=== PATIENT | male | born 1935 | race Caucasian/White ===

== ENCOUNTER → 2019-11-04 09:46 | Outpatient (BNVA) | payer MEDICARE, OTHER, SELFPAY | PROVIDERS: Family Provider Nurse Practitioner Family; PCP Nurse Practitioner Family; Visit Provider Registered Nurse | DX: E78.5 Hyperlipidemia, unspecified (principal); I10 Essential (primary) hypertension | CPT/HCPCS: 80053; 80061; 85025 ==

== ENCOUNTER 2020-01-14 10:24 | Inpatient (IN) | payer MEDICARE, OTHER, SELFPAY ==
[2020-01-14] VITALS (9 sets, daily range): BP systolic 116–173; BP diastolic 55–118; PULSE 63–84; RESP 14–19; TEMP 25.5–36.7; O2SAT 93–98; BMI 27.8
--- NOTE | 2020-01-14 11:15 | ECG_ITS ---
[facility] Test Date: 2020-01-14 Pat Name: Olivier Townsend Department: Room: Gender: Male Respiratory Manager: : 1935 Requested By: Sean Alarcon Order Number: [id number] Bro MD: Anil Brewer M.D. Measurements Intervals [place] Rate: 73 P: 51 MA: 182 QRS: -30 QRSD: 85 T: 49 QT: 354 QTc: 393 Interpretive Statements SINUS RHYTHM BORDERLINE LEFT AXIS DEVIATION [QRS AXIS < -20] NONSPECIFIC ST & T-WAVE ABNORMALITY Compared to ECG 05/10/2015 06:08:05 No significant changes Electronically Signed On 01-15-2020 18:35:01 CDT by Anil Brewer M.D. [email or web address]/store/NU/[id number] f
--- NOTE | 2020-01-14 11:15 | XRR_ITS ---
PROCEDURE INFORMATION: Exam: XR Chest, 1 View Exam date and time: 01/14/2020 11:16 AM Age: 84 years old Clinical indication: Other: Palpitation; Patient HX: SOB on exertion TECHNIQUE: Imaging protocol: XR of the chest Views: 1 view. COMPARISON: CR Chest 2 views* [id number] 04/20/2017 11:29 AM FINDINGS: Lungs: Calcified granuloma right lower lobe and left upper lobe. Lungs are well aerated without a focal area of consolidation. Pleural space: Unremarkable. No pleural effusion. No pneumothorax. Heart/Mediastinum: Unremarkable. No cardiomegaly. Bones/joints: Unremarkable. XR/XR chest 1V portable [id number] IMPRESSION: Lungs are well aerated without a focal area of consolidation.
[2020-01-14 11:24] LABS: Basophils % 0.5 %; Eosinophils # 0.2 10^3/uL (0.0-0.8); Eosinophils % 2.9 %; Hematocrit 52.8 % (42.0-52.0); Hemoglobin 17.3 g/dL (11.7-16.6); Lymphocytes # 1.9 10^3/uL (0.8-4.8); Lymphocytes % 29.6 %; Mean Corpuscular HGB Conc 32.8 g/dL (30.0-36.0); Mean Corpuscular Hemoglobin 30.1 pg (28.0-34.0); Mean Corpuscular Volume 91.8 fL (80-94); Mean Platelet Volume 9.2 fL (7.4-10.4); Monocytes # 0.5 10^3/uL (0.2-0.9); Monocytes % 7.2 %; Neutrophils # 3.87 10^3/uL (1.8-7.7); Neutrophils % 59.5 %; Nucleated Red Blood Cells % 0 %; Platelet Count 207 10^3/cmm (130-400); Red Blood Count 5.75 10^6/uL (4.1-5.3); Red Cell Distribution Width 13.5 % (12.1-15.1); White Blood Count 6.5 10^3/uL (4.0-10.0)
--- NOTE | 2020-01-14 11:25 | CT_ITS ---
WS: [id number] CT CHEST ANGIOGRAPHY WITH REFORMATS HISTORY: cp TECHNIQUE: Contiguous axial images are obtained through the chest during arterial injection of intrav enous contrast. Images are reconstructed to evaluate the pulmonary arteries. MIP imaging also reviewe d. All CT scans at [facility] use at least one of these dose optimization techniques: aut omated exposure control; mA and/or kV adjustment per patient size (includes targeted exams where dose is matched to clinical indication); or iterative reconstruction. CONTRAST: Omnipaque 300; 95 mL IV. DLP: 551.29 mGy.cm COMPARISON: 05/10/2015 Very good opacification of the pulmonary arteries. There is significant embolic burden bilaterally wi thin the pulmonary arteries. Near complete occlusion beginning in the distal RIGHT main pulmonary art colette with emboli branching into the upper, middle and lower lobes. Occlusive emboli begins in the subs egmental branches of the LEFT lower lobe. Chronic emphysema. No pneumonia. No wedge-shaped infarcts. Mild dependent changes at the lung bases b ilaterally. Mild enlargement of the RIGHT heart chambers with mild RIGHT heart strain. No pericardial or pleural effusion. 10 mm RIGHT hilar lymph node. Small hiatal hernia. Mild hepatic steatosis. Prior cholecystectomy. No osteoblastic or osteolytic bone disease. CT/CT angio chest PE protcl [id number] IMPRESSION: 1. Significant bilateral pulmonary embolic burden. 2. No pneumonia. 3. Chronic emphysema. Notified Sean Alarcon MD at 01/14/2020 1:21 PM.
--- NOTE | 2020-01-14 11:28 | ED_ITS ---
HPI - Arrhythmia/Palpitations General: Chief Complaint: Arrhythmia/Palpitations Stated Complaint: RAPID HEART BEAT Time Seen by Provider: 01/14/20 11:14 Source: patient Mode of arrival: ambulatory Limitations: no limitations History of Present Illness: HPI narrative: 84-year-old male with history of pulmonary embolism roughly 5 to 6 years ago. Patient states that he was digging earlier today roughly at 8-8 30 and started to have palpitations along with chest pain. He states this lasted roughly 10 minutes and is since resolved. He states he still having some exertional shortness of breath but has no longer had any chest pain. Denies any fever or cough. Denies any weakness. Denies any vomiting or diarrhea. Associated symptoms: Deny nausea or vomiting Review of Systems Const: Denies: fever(s), chills, body aches or change in appetite Eyes: Denies: blurry vision or eye discomfort ENMT: Denies: throat pain or dental pain Card: Reports: chest pain, palpitations and dyspnea on exertion Resp: Denies: dyspnea GI: Denies: abdominal pain, nausea, vomiting or diarrhea : Denies: dysuria Musc: Denies: neck pain or back pain Skin/Breast: Denies: rash Neuro: Denies: headache(s) Psych: Denies: depression Eitan/Lymph: Denies: easy bruising All/Imm: Denies: urticaria PFSH ED PFSH: Medical History Essential hypertension Family History Other Cancer Social History Smoking and tobacco status: never smoked Physical Exam Const: COMMON NORMALS: no acute distress, patient oriented x3 and healthy appearing HENMT: COMMON NORMALS: normocephalic and atraumatic HEAD & SCALP: normocephalic and atraumatic Eye: COMMON NORMALS: Equal, round and reactive pupils present and EOMs intact bilaterally PUPIL: Yes Equal, round and reactive pupils present Neck/C-Spine: COMMON NORMALS: full ROM and supple Chest: COMMONS NORMALS: normal inspection of the chest and normal palpation of entire chest wall Resp: COMMON NORMALS: normal respiratory effort, No retractions, No use of accessory muscles and clear to auscultation bilaterally AUSCULTATION: clear to auscultation bilaterally Cardio: COMMON NORMALS: regular rate, regular rhythm and No murmurs present (Cardio) RATE: regular rate RHYTHM: regular rhythm GI: COMMON NORMALS: Normal to inspection, nondistended, normoactive bowel sounds present, Soft to palpation, non-tender and no masses PALPATION: Yes Soft to palpation Extremity: COMMON NORMALS: normal to inspection and full ROM Neuro: COMMON NORMALS: patient oriented x3, moves all extremities and no focal motor deficits Psych: COMMON NORMALS: mental status grossly normal, Normal thought process present and cooperative THOUGHT PROCESS: Normal thought process present Skin: COMMON NORMALS: no rashes or lesions noted and no wounds GENERAL SKIN EXAM: no rashes or lesions noted Course Vital Signs: Vital signs: Vital Signs Temperature 97.9 F 01/14/20 10:34 Pulse Rate 76 01/14/20 10:45 Respiratory Rate 16 01/14/20 10:45 Blood Pressure 173/118 01/14/20 10:34 Pulse Oximetry 97 01/14/20 10:45 MDM - Arrhythmia/Palpitations MDM Narrative: Medical decision making narrative: Patient presents here with chest pain along with dyspnea on exertion is found to have a pulmonary embolism. Patient here is been well-appearing with normal blood pressure. Patient started on Lovenox. I spoke to hospitalist and will admit at this time. Patient has been pain-free here. Lab Data: Labs: Lab Results 01/14/20 01/14/20 01/14/20 Range/Units 11:20 11:20 11:20 WBC 6.5 (4.0-10.0) 10^3/ uL RBC 5.75 H (4.1-5.3) 10^6/u L Hgb 17.3 H (11.7-16.6) g/dL Hct 52.8 H (42.0-52.0) % MCV 91.8 (80-94) fL MCH 30.1 (28.0-34.0) pg MCHC 32.8 (30.0-36.0) g/dL RDW 13.5 (12.1-15.1) % Plt Count 207 (130-400) 10^3/c mm MPV 9.2 (7.4-10.4) fL Neut % (Auto) 59.5 % Lymph % (Auto) 29.6 % [place] % (Auto) 7.2 % Eos % (Auto) 2.9 % Baso % (Auto) 0.5 % Neut # (Auto) 3.87 (1.8-7.7) 10^3/u L Lymph # (Auto) 1.9 (0.8-4.8) 10^3/u L [place] # (Auto) 0.5 (0.2-0.9) 10^3/u L Eos # (Auto) 0.2 (0.0-0.8) 10^3/u L Baso # (Auto) 0.0 (0.0-0.1) 10^3/u L Nucleated RBC % (a uto) 0 % Nucleated RBCs # 0.0 /100WBC PT 11.80 L (12.1-14.9) SECO NDS INR 0.84 (0.8-1.2) Sodium 140 (136-145) mmol/L Potassium 4.5 (3.5-5.1) mmol/L Chloride 103 (98-107) mmol/L Carbon Dioxide 25 (22-29) mmol/L Anion Gap 16.5 (5-19) BUN 19 (8-23) mg/dL Creatinine 1.1 (0.7-1.2) mg/dL GFR Calculation Not Reportable Glucose 101 (65-115) mg/dL Calculated Osmolal ity 292 (285-295) mOsm/k g Calcium 9.8 (8.5-10.5) mg/dL Total Bilirubin 1.0 (0.15-1.2) mg/dL AST 22 (0-40) U/L ALT 16 (0-41) U/L Alkaline Phosphata se 58 (40-130) IU/L Troponin T Baselin e (0-15) ng/L Troponin T 120 Min kimberly (0-15) ng/L Delta Troponin T (0-10) ABS# Total Protein 7.3 (6.6-8.7) g/dL Albumin 4.5 (3.5-5.2) g/dL Globulin 2.8 (1.3-4.6) g/dL 01/14/20 01/14/20 Range/Units 11:20 13:13 WBC (4.0-10.0) 10^3/ uL RBC (4.1-5.3) 10^6/u L Hgb (11.7-16.6) g/dL Hct (42.0-52.0) % MCV (80-94) fL MCH (28.0-34.0) pg MCHC (30.0-36.0) g/dL RDW (12.1-15.1) % Plt Count (130-400) 10^3/c mm MPV (7.4-10.4) fL Neut % (Auto) % Lymph % (Auto) % [place] % (Auto) % Eos % (Auto) % Baso % (Auto) % Neut # (Auto) (1.8-7.7) 10^3/u L Lymph # (Auto) (0.8-4.8) 10^3/u L [place] # (Auto) (0.2-0.9) 10^3/u L Eos # (Auto) (0.0-0.8) 10^3/u L Baso # (Auto) (0.0-0.1) 10^3/u L Nucleated RBC % (a uto) % Nucleated RBCs # /100WBC PT (12.1-14.9) SECO NDS INR (0.8-1.2) Sodium (136-145) mmol/L Potassium (3.5-5.1) mmol/L Chloride (98-107) mmol/L Carbon Dioxide (22-29) mmol/L Anion Gap (5-19) BUN (8-23) mg/dL Creatinine (0.7-1.2) mg/dL GFR Calculation Glucose (65-115) mg/dL Calculated Osmolal ity (285-295) mOsm/k g Calcium (8.5-10.5) mg/dL Total Bilirubin (0.15-1.2) mg/dL AST (0-40) U/L ALT (0-41) U/L Alkaline Phosphata se (40-130) IU/L Troponin T Baselin e 57 H (0-15) ng/L Troponin T 120 Min kimberly 76.89 H (0-15) ng/L Delta Troponin T 19.89 H* (0-10) ABS# Total Protein (6.6-8.7) g/dL Albumin (3.5-5.2) g/dL Globulin (1.3-4.6) g/dL Imaging Data^: CT Chest: Attestation: I personally reviewed and interpreted this imaging study as follows: Radiologist's impression: [address] [place] [address] CT Scan Report Signed Patient: Olivier Townsend Unit #: [id number] : 1935 Age/Sex: 84 / M ADM Date: 01/14/20 Loc: ER Room/Bed: Attending Dr: Ordering Provider/Ordering MD: Sean Alarcon MD Date of Service: 01/14/20 Procedure(s): CT angio chest PE protcl [id number] Accession Number(s): [id number] Report Number: [id number] WS: [id number] CT CHEST ANGIOGRAPHY WITH REFORMATS HISTORY: cp TECHNIQUE: Contiguous axial images are obtained through the chest during arterial injection of intravenous contrast. Images are reconstructed to evaluate the pulmonary arteries. MIP imaging also reviewed. All CT scans at [facility] use at least one of these dose optimization techniques: automated exposure control; mA and/or kV adjustment per patient size (includes targeted exams where dose is matched to clinical indication); or iterative reconstruction. CONTRAST: Omnipaque 300; 95 mL IV. DLP: 551.29 mGy.cm COMPARISON: 05/10/2015 Very good opacification of the pulmonary arteries. There is significant embolic burden bilaterally within the pulmonary arteries. Near complete occlusion beginning in the distal RIGHT main pulmonary artery with emboli branching into the upper, middle and lower lobes. Occlusive emboli begins in the subsegmental branches of the LEFT lower lobe. Chronic emphysema. No pneumonia. No wedge-shaped infarcts. Mild dependent changes at the lung bases bilaterally. Mild enlargement of the RIGHT heart chambers with mild RIGHT heart strain. No pericardial or pleural effusion. 10 mm RIGHT hilar lymph node. Small hiatal hernia. Mild hepatic steatosis. Prior cholecystectomy. No osteoblastic or osteolytic bone disease. CT/CT angio chest PE protcl [id number] IMPRESSION: 1. Significant bilateral pulmonary embolic burden. 2. No pneumonia. 3. Chronic emphysema. EKG Data^: EKG 1: Attestation: I personally reviewed and interpreted this EKG as follows: EKG interpretation date: 01/14/20 EKG interpretation time: 10:31 Interpretation: nsr hr [address] or t wave abnormalities qrs 85 qtc 381 Other EKG comments: Chest X-Ray 01/14/20 11:15 IMPRESSION: Lungs are well aerated without a focal area of consolidation. Chest CTA 01/14/20 11:25 IMPRESSION: 1. Significant bilateral pulmonary embolic burden. 2. No pneumonia. 3. Chronic emphysema. Notified Sean Alarcon MD at 01/14/2020 1:21 PM. Discharge Plan Discharge Patient Disposition: Admitted As Inpatient Clinical Impression: Pulmonary embolism Qualifiers: Pulmonary embolism type: unspecified Chronicity: acute Acute cor pulmonale presence: unspecified Qualified Code(s): I26.99 - Other pulmonary embolism without acute cor pulmonale Condition: Stable Referrals: Dann Prado FNP [Primary Care Provider] - Mark Sprague FNP [Family Provider] - Coding Level of Care Code ED Real Estate Account Executive for Chg Fwd Exam Comprehensive
[2020-01-14 11:42] LABS: INR 0.84 (0.8-1.2)
[2020-01-14 11:43] LABS: Alanine Aminotransferase 16 U/L (0-41); Albumin Level 4.5 g/dL (3.5-5.2); Alkaline Phosphatase 58 IU/L (40-130); Anion Gap 16.5 (5-19); Aspartate Amino Transferase 22 U/L (0-40); Blood Urea Nitrogen 19 mg/dL (8-23); Calcium 9.8 mg/dL (8.5-10.5); Carbon Dioxide 25 mmol/L (22-29); Chloride 103 mmol/L (98-107); Creatinine Clr Calc Pharmacy 61.3353; Globulin 2.8 g/dL (1.3-4.6); Glucose 101 mg/dL (65-115); Osmolality Calculated 292 mOsm/kg (285-295); Potassium 4.5 mmol/L (3.5-5.1); Sodium 140 mmol/L (136-145); Total Protein 7.3 g/dL (6.6-8.7); Troponin(5th) Baseline 57 ng/L (0-15)
[2020-01-14] MEDS: iohexol 350 mg/mL 100 mL Btl IV (12:50)
--- NOTE | 2020-01-14 13:15 | ECG_ITS ---
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 Measurements Intervals [place] Rate: 61 P: 48 TN: 210 QRS: 64 QRSD: 92 T: -7 QT: 407 QTc: 412 Interpretive Statements SINUS RHYTHM WITH FIRST DEGREE AV BLOCK INDETERMINATE AXIS INCOMPLETE RIGHT BUNDLE BRANCH BLOCK [90+ ms QRS DURATION, TERMINAL R IN V1/V2, 40+ ms S IN I/aVL/V4/V5/V6] NONSPECIFIC T-WAVE ABNORMALITY Compared to ECG 01/14/2020 10:31:33 First degree AV block now present Indeterminate axis now present Incomplete right bundle-branch block now present T-wave abnormality still present Electronically Signed On 01-15-2020 18:36:49 CDT by Anil Brewer M.D. [email or web address]/store/ov/[id number]
[2020-01-14 13:37] LABS: Troponin 5 2HR 76.89 ng/L (0-15)
[2020-01-14] MEDS: enoxaparin 100 mg/mL Syringe 90 MG SUBCUT (13:40)
[2020-01-14 13:44] LABS: Troponin 5 2HR Delta 19.89 ABS# (0-10)
--- NOTE | 2020-01-14 15:45 | PM.HP ---
Providers/Chief Complaint Admitting Physician: Cally Duke MD Primary Care Provider: WILLARD Salamanca Chief Complaint: RAPID HEART BEAT History of Present Illness Olivier Townsend is a 84 year old male with a past medical history of hypertension, unprovoked PE approximately 5 years ago for which he was on po anticoagulation for approximately a year and then discontinued when patient started to feel well. He was in his usual state of health until 8 AM this morning when he was outside his house and suddenly started experiencing palpitations. Denies any chest pain at that time. Lorado subjectively short of breath and presented to the ER. Upon presentation here he underwent a CT of the chest which shows a bilateral PE. Per radiology read there is significant embolic burden bilaterally within the pulmonary arteries with near complete occlusion of the distal right main pulmonary artery with emboli present in the upper middle and lower lobes. Occlusive emboli and thickening in the subsegmental branches of the left lower lobe. Labs are notable for hemoglobin of 17.3, elevated baseline troponin of 57, with a 2-hour delta of 19. Patient denies current symptoms at this time. He is saturating 97% on room air. Denies any dyspnea or chest pain. No known covert exposures. No complaints of fever. Review of Systems General: Reports: 10 or more systems reviewed and unremarkable except in HPI and below Const: Denies: fever(s), chills or body aches Eyes: Denies: change in vision, blurry vision or photophobia ENMT: Reports: hoarseness; Denies: throat pain, enlarged tonsils, odynophagia or nasal congestion Card: Denies: chest pain, palpitations, irregular heart rhythm, edema, swelling of feet/ankles, lightheadedness, pre-syncope, dyspnea on exertion or orthopnea Resp: Denies: dyspnea, productive cough, non-productive cough, wheezing, stridor, pain on inspiration, change in phlegm color, hemoptysis or chest congestion GI: Denies: abdominal pain, nausea, vomiting, hematemesis, coffee ground emesis, dysphagia, heartburn, diarrhea, constipation, GI cramping, change in stool character, hematochezia or melena : Denies: flank pain, dysuria, urinary frequency, urinary urgency, urinary hesitancy or hematuria Musc: Denies: neck pain, back pain, extremity pain, joint swelling, joint warmth or deformity Neuro: Denies: headache(s), numbness in extremities, weakness in extremities, sensory changes, difficulty walking, frequent falls, dizziness, vertigo, behavioral changes, Slurred speech present or seizure-like activity Psych: Denies: anxiety, depression, suicidal ideation or homicidal ideation Endo: Denies: polyuria, polydipsia, tired all the time, cold intolerance or hot flashes Eitan/Lymph: Denies: easy bruising or easy bleeding Medications/Allergies Home Medications Medication Instructions Recorded Confirmed Last Taken Type carvedilol 3.125 mg tablet 3.125 mg PO BID 90 Days #180 tab 11/04/19 01/14/20 01/14/20 Rx cetirizine 10 mg capsule 10 mg PO DAILY 90 Days #90 cap 11/04/19 01/14/20 01/14/20 Rx Vitamin D3 1 tab PO DAILY 01/14/20 01/14/20 01/14/20 History aspirin 81 mg PO DAILY 01/14/20 01/14/20 01/14/20 History Allergies Allergy/AdvReac Type Severity Reaction Status Date / Time No Known Allergies Allergy Verified 01/14/20 12:17 PFSH Acute PFSH: Medical History Essential hypertension Family History Other Cancer Social History Smoking and tobacco status: never smoked Vitals/I&O/Wt Last Vital Signs Temp 78 F L 01/14/20 12:24 Pulse 71 01/14/20 14:59 Resp 18 01/14/20 14:59 BP 147/88 01/14/20 14:59 Pulse Ox 96 01/14/20 14:59 Weight last 48 hrs Weight 92.986 kg Physical Exam Const: COMMON NORMALS: no acute distress, average body habitus, patient oriented x3, no limitations, healthy appearing, alert and well nourished HENMT: COMMON NORMALS: normocephalic and atraumatic HEAD & SCALP: normocephalic and atraumatic Eye: COMMON NORMALS: Equal, round and reactive pupils present, EOMs intact bilaterally, conjunctivae normal and no scleral icterus CONJUNCTIVA: Yes conjunctivae normal PUPIL: Yes Equal, round and reactive pupils present Neck/C-Spine: COMMON NORMALS: no JVD Resp: COMMON NORMALS: normal respiratory effort, No retractions, No use of accessory muscles, clear to auscultation bilaterally and percussion normal AUSCULTATION: clear to auscultation bilaterally PERCUSSION: percussion normal Cardio: COMMON NORMALS: no JVD, regular rate, regular rhythm, S1 normal heart sound present, S2 normal heart sound present, No gallops present (Cardio), No clicks present (Cardio), No murmurs present (Cardio), No rub (Cardio) and Peripheral pulses 2+ throughout RATE: regular rate RHYTHM: regular rhythm HEART SOUNDS: S1 normal heart sound present and S2 normal heart sound present PERIPHERAL PULSES: Peripheral pulses 2+ throughout GI: COMMON NORMALS: Normal to inspection, nondistended, normoactive bowel sounds present, Soft to palpation, non-tender, No hepatosplenomegaly present, no masses and no bruits PALPATION: Yes Soft to palpation and Yes No hepatosplenomegaly present Extremity: COMMON NORMALS: normal to inspection, full ROM, capillary refill normal, no joint enlargement, no clubbing, cyanosis or edema, no calf tenderness and no pedal edema Neuro: COMMON NORMALS: patient oriented x3, CN's II-XII intact bilaterally, moves all extremities, no focal motor deficits, no sensory deficits noted, deep tendon reflexes 2+ bilaterally and gait normal SENSORIUM/ORIENTATION: Yes alert Psych: COMMON NORMALS: mental status grossly normal, Normal thought process present, cooperative, normal affect, speech normal, activity/motor behavior normal, denies hallucinations, denies homicidal ideation and denies suicidal ideation SPEECH: Yes normal speech THOUGHT PROCESS: Normal thought process present Skin: COMMON NORMALS: no rashes or lesions noted, no wounds, turgor normal, no jaundice, no petechiae and no mottling GENERAL SKIN EXAM: no rashes or lesions noted and turgor normal Data : 01/14/20 11:20 01/14/20 11:20 A&P Assessment and plan (1) Pulmonary embolism: Status: Acute Qualifiers: Acute cor pulmonale presence: unspecified Chronicity: acute Pulmonary embolism type: unspecified Qualified Code(s): I26.99 - Other pulmonary embolism without acute cor pulmonale (2) Essential hypertension: Status: Acute Additional A&P Information Admit to CSU in view of PE and elevated troponins #Bilateral pulmonary embolism as noted above in HPI. Fortunately patient is currently hemodynamically stable, saturating greater than has been more dyspnea. Start him on heparin drip today. Would prefer this over Lovenox given that patient has massive PE we need to monitor him closely and in case of any decomp may need vascular intervention If remains stable over the next 24 to 48 hours, will plan to transition him to NOACs. Elevated troponin likely 2/2 right heart strain, check 2 D echocardiogram , monitor for arrhythmias Continue to check serial troponins. Continuous pulse oximetery to keep sat >92% Continue home dose of ASA and carvedilol Check LE duplex 2nd episode of PE in 5 years , no known h/o malignancy Full code Attestations Medical Necessity Statement*: Anticipate greater than 2 midnight admission for management of massive pulmonary embolism along with right heart strain. Coding Level of Care Code Acute Inspection And Testing Supervisor for [place] Rachel Diagnoses Pulmonary embolism I26.99 Acute cor pulmonale presence: unspecified Chronicity: acute Pulmonary embolism type: unspecified Essential hypertension I10
[2020-01-14] MEDS: heparin 5,000 unit/mL INJ 1 mL IV (16:38)
[2020-01-14] MEDS: heparin drip 25,000 UNIT/500 ML PREMIX 26 UNIT IV (16:39)
--- NOTE | 2020-01-14 17:15 | ECG_ITS ---
[facility] Test Date: 2020-01-14 Pat Name: Olivier Townsend Department: Room: 106 Gender: Male Manager Of Medical: : 1935 Requested By: Sean Alarcon Order Number: [id number] Bro MD: Anil Brewer M.D. Measurements Intervals [place] Rate: 69 P: 38 NV: 199 QRS: 17 QRSD: 95 T: 30 QT: 390 QTc: 419 Interpretive Statements SINUS RHYTHM Compared to ECG 01/14/2020 13:47:14 First degree AV block no longer present Indeterminate axis no longer present Incomplete right bundle-branch block no longer present T-wave abnormality no longer present Electronically Signed On 01-15-2020 18:36:55 CDT by Anil Brewer M.D. [email or web address]/store/OM/[id number]
[2020-01-14 17:46] LABS: SARS Covid-2 Antigen Negative (Negative)
[2020-01-14] MEDS: carvedilol 3.125 mg Tablet PO (17:56)
[2020-01-14 18:14] LABS: Troponin 5 6HR 83.34 ng/L (0-15)
[2020-01-14 18:18] LABS: Troponin 5 6HR Delta 26.34 ng/L (0-12)
[2020-01-14 23:10] LABS: Partial Thromboplastin Time 146.8 SECONDS (23.9-36.7)
--- NOTE | 2020-01-14 23:16 | PC.NURSE ---
PTT results received at 2310 results 146.8. Following protocol heparin gtt decreased 3 mL/hr to final IV rate at 23 mL/hr. Next PTT due 01/14 at 0510. Continue care
[2020-01-15] VITALS: BP 121/78; PULSE 60; RESP 14; TEMP 36.6; O2SAT 94
[2020-01-15 04:00] VITALS: BP 120/78; PULSE 53; RESP 17; TEMP 36.6; O2SAT 92
[2020-01-15 05:03] LABS: Basophils % 0.6 %; Eosinophils # 0.2 10^3/uL (0.0-0.8); Eosinophils % 2.9 %; Hematocrit 49.2 % (42.0-52.0); Hemoglobin 16.3 g/dL (11.7-16.6); Lymphocytes # 1.9 10^3/uL (0.8-4.8); Lymphocytes % 26.6 %; Mean Corpuscular HGB Conc 33.1 g/dL (30.0-36.0); Mean Corpuscular Hemoglobin 30.1 pg (28.0-34.0); Mean Corpuscular Volume 90.8 fL (80-94); Mean Platelet Volume 9.8 fL (7.4-10.4); Monocytes # 0.6 10^3/uL (0.2-0.9); Neutrophils # 4.24 10^3/uL (1.8-7.7); Neutrophils % 60.6 %; Nucleated Red Blood Cells % 0 %; Platelet Count 198 10^3/cmm (130-400); Red Blood Count 5.42 10^6/uL (4.1-5.3); Red Cell Distribution Width 13.4 % (12.1-15.1)
[2020-01-15 05:31] LABS: Alanine Aminotransferase 13 U/L (0-41); Alkaline Phosphatase 50 IU/L (40-130); Anion Gap 15.1 (5-19); Aspartate Amino Transferase 18 U/L (0-40); Blood Urea Nitrogen 19 mg/dL (8-23); Calcium 9.1 mg/dL (8.5-10.5); Carbon Dioxide 24 mmol/L (22-29); Chloride 103 mmol/L (98-107); Globulin 2.6 g/dL (1.3-4.6); Glucose 94 mg/dL (65-115); Osmolality Calculated 288 mOsm/kg (285-295); Potassium 4.1 mmol/L (3.5-5.1); Sodium 138 mmol/L (136-145); Total Bilirubin 1.2 mg/dL (0.15-1.2); Total Protein 6.6 g/dL (6.6-8.7)
--- NOTE | 2020-01-15 06:36 | PC.NURSE ---
Dr. Hare notified of PTT of 156. Patient is on heparin drip. Awaiting orders.
--- NOTE | 2020-01-15 06:40 | PC.NURSE ---
Dr. Hare ordered to pause heparin drip for one hour. When heparin drip is restarted in one hour, ordered to turn down by 5 ml and recheck PTT per protocol.
--- NOTE | 2020-01-15 07:00 | USCV_ITS ---
Olivier Townsend Age: 84 Gender: M : 1935 Exam Date: 01/15/2020 07:52 Ordering Phys: Cally Duke MD Technologist: Jose Antonio Kingsley Exam Location: [facility] [place] Indication: RISING TROP BP: 132 / 81 HR: 58 Rhythm: Sinus Technical Quality: Fair MEASUREMENTS (Male / Female) Normal Values 2D ECHO LV Diastolic Diameter PLAX 4.2 cm 4.2 - 5.9 / 3.9 - 5.3 cm LV Systolic Diameter PLAX 2.6 cm IVS Diastolic Thickness 1.0 cm 0.6 - 1.0 / 0.6 - 0.9 cm IVS Systolic Thickness 1.5 cm LVPW Diastolic Thickness 1.2 cm 0.6 - 1.0 / 0.6 - 0.9 cm LVPW Systolic Thickness 1.6 cm LVOT Diameter 2.0 cm LV Ejection Fraction 2D Teich 69.2 % LV Ejection Fraction MOD 2C 44.7 % LV Ejection Fraction 2C AL 44.9 % LA Diameter 4.3 cm LA Width 3.5 cm LA Height 4.4 cm RA Width 3.6 cm RA Height 4.3 cm M-MODE LV Diastolic Diameter MM 4.6 cm 4.2 - 5.9 / 3.9 - 5.3 cm LV Systolic Diameter MM 3.2 cm LV Ejection Fraction MM Teich 58.3 % IVS Diastolic Thickness MM 1.5 cm 0.6 - 1.0 / 0.6 - 0.9 cm IVS Systolic Thickness MM 1.6 cm LVPW Diastolic Thickness MM 1.1 cm 0.6 - 1.0 / 0.6 - 0.9 cm LVPW Systolic Thickness MM 1.8 cm RV Diastolic Diameter MM 2.0 cm Aortic Annulus Diameter 3.8 cm LA Ao Ratio MM 1.3 MV E Point Septal Separation 1.1 cm DOPPLER AV Peak Velocity 117.0 cm/s LVOT Peak Velocity 112.0 cm/s AV Area Cont Eq vti 3.2 cm squared AV Area Cont Eq pk 3.1 cm squared MV Area PHT 5.0 cm squared Mitral E to A Ratio 0.5 MV E' Velocity 27.5 cm/s Mitral E to MV E' Ratio 5.8 Mitral E to LV E' Lateral Ratio 5.1 Mitral E to LV E' Septal Ratio 6.8 TR Peak Velocity 305.0 cm/s TR Peak Gradient 37.2 mmHg TV Peak E Velocity 88.0 cm/s Right Atrial Pressure 3.0 mmHg Pulmonary Artery Systolic Pressu 40.2 mmHg PV Peak Velocity 89.0 cm/s FINDINGS Left Ventricle Normal left ventricular size and systolic function, EF 59 %. Mild left ventricular hypertrophy. No regional wall motion abnormalities. Grade I/IV diastolic dysfunction (abnormal relaxation filling pattern), normal to mildly elevated filling pressures. Right Ventricle Normal right ventricular size and systolic function. Right Atrium Normal right atrial size. Left Atrium Mildly dilated left atrium Mitral Valve No gross abnormalities noted Aortic Valve Thickened aortic valve. Tricuspid Valve [id number]-us-[id number] tricuspid valve regurgitation. Pulmonic Valve Pulmonic valve not well visualized. Pericardium No pericardial effusion. Aorta Normal aortic annulus size. CONCLUSIONS Normal left ventricular size and systolic function, EF 59 %. Mild left ventricular hypertrophy. No regional wall motion abnormalities. Grade I/IV diastolic dysfunction (abnormal relaxation filling pattern), normal to mildly elevated filling pressures. Normal right ventricular size and systolic function. Mildly dilated left atrium. [id number] tricuspid valve regurgitation. Estimated pulmonary artery peak systolic pressure of 40 mmHg There is no pericardial effusion. There are no intracardiac masses. Compared to the previous study from 05/11/2015, there may not be a significant change in the 2D findings Dr Nahun Aguayo MD [facility] (Electronically Signed) Final Date: 15 January 2020 18:16 S
[2020-01-15 08:00] VITALS: BP 124/79; PULSE 61; RESP 17; TEMP 36.5; O2SAT 93
[2020-01-15] MEDS: carvedilol 3.125 mg Tablet PO ×2 (09:05→17:56)
[2020-01-15] MEDS: aspirin 81 mg EC Tablet PO (09:05)
[2020-01-15 11:27] VITALS: BP 118/77; PULSE 58; RESP 15; TEMP 36.4; O2SAT 95
[2020-01-15 11:28] LABS: Troponin T (5th) Once 45 ng/L (0-15)
--- NOTE | 2020-01-15 13:39 | PM.PN ---
Subjective Subjective: Interval history: Patient denies any complaints of chest pain dyspnea palpitations. No acute events on telemetry. Heart rate ranging between 50-60..He did receive carvedilol this morning. Oxygen saturation is 95% on room air. Lower extremity duplex performed this morning revealed DVT in SFV per prelim report, final report pending. Echocardiogram taken, results remain pending. Medications: Reviewed: Yes Vitals/I&O/Wt Last Vital Signs Temp 97.6 F 01/15/20 11:27 Pulse 58 L 01/15/20 11:27 Resp 15 01/15/20 11:27 BP 118/77 01/15/20 11:27 Pulse Ox 95 01/15/20 11:27 01/14/20 01/15/20 01/15/20 22:59 06:59 14:59 Intake Total 240 / 240 457.250 / 697.250 480 / 480 Output Total 300 / 300 340 / 340 Balance 240 / 240 157.250 / 397.250 140 / 140 Weight last 48 hrs Weight 92.986 kg Physical Exam Narrative: EXAM NARRATIVE: GEN: Awake, alert and oriented, no acute distress CVS: S1S2 N RS: CTA B/L Abd: Soft, nt/nd , bs+ RETAIL MERCHANDISING SPECIALIST: no focal neuro deficits Const: COMMON NORMALS: patient oriented x3 and alert HENMT: COMMON NORMALS: normocephalic and atraumatic HEAD & SCALP: normocephalic and atraumatic Eye: COMMON NORMALS: Equal, round and reactive pupils present, EOMs intact bilaterally, conjunctivae normal and no scleral icterus CONJUNCTIVA: Yes conjunctivae normal PUPIL: Yes Equal, round and reactive pupils present Neck/C-Spine: COMMON NORMALS: no JVD Resp: COMMON NORMALS: normal respiratory effort, No retractions, No use of accessory muscles, clear to auscultation bilaterally and percussion normal AUSCULTATION: clear to auscultation bilaterally PERCUSSION: percussion normal Cardio: COMMON NORMALS: no JVD, regular rate, regular rhythm, S1 normal heart sound present, S2 normal heart sound present, No gallops present (Cardio), No clicks present (Cardio), No murmurs present (Cardio), No rub (Cardio) and Peripheral pulses 2+ throughout RATE: regular rate RHYTHM: regular rhythm HEART SOUNDS: S1 normal heart sound present and S2 normal heart sound present PERIPHERAL PULSES: Peripheral pulses 2+ throughout GI: COMMON NORMALS: Normal to inspection, nondistended, normoactive bowel sounds present, Soft to palpation, non-tender, No hepatosplenomegaly present, no masses and no bruits PALPATION: Yes Soft to palpation and Yes No hepatosplenomegaly present Extremity: COMMON NORMALS: normal to inspection, full ROM, capillary refill normal, no joint enlargement, no clubbing, cyanosis or edema, no calf tenderness and no pedal edema Neuro: COMMON NORMALS: patient oriented x3, CN's II-XII intact bilaterally, moves all extremities, no focal motor deficits, no sensory deficits noted, deep tendon reflexes 2+ bilaterally and gait normal SENSORIUM/ORIENTATION: Yes alert Psych: COMMON NORMALS: mental status grossly normal, Normal thought process present, cooperative, normal affect, speech normal, activity/motor behavior normal, denies hallucinations, denies homicidal ideation and denies suicidal ideation SPEECH: Yes normal speech THOUGHT PROCESS: Normal thought process present Skin: COMMON NORMALS: no rashes or lesions noted, no wounds, turgor normal, no jaundice, no petechiae and no mottling GENERAL SKIN EXAM: no rashes or lesions noted and turgor normal Data : 01/15/20 04:50 01/15/20 04:50 A&P Assessment and plan (1) Pulmonary embolism: Status: Acute Qualifiers: Acute cor pulmonale presence: unspecified Chronicity: acute Pulmonary embolism type: unspecified Qualified Code(s): I26.99 - Other pulmonary embolism without acute cor pulmonale (2) Essential hypertension: Status: Acute Additional A&P Information #Pulmonary embolism with significant embolic burden bilaterally within the pulmonary arteries. Lower extremity DVT also noted on prelim reports on the left side. Upon specifically asking, patient now recalls that he has been having pain in his left eye for the past 2 weeks. He denies any history of recent immobilization or long travel. States he is fairly active otherwise. Echocardiogram remains pending. CT chest with evidence of right heart strain. Patient continues to be clinically well-appearing, has been hemodynamically stable maintaining a normal blood pressure. No acute events noted on telemetry overnight. Start heparin drip today and transition to oral Eliquis 10 mg twice daily for 1 week, thereafter dosing to be dropped to 5 mg p.o. twice daily. If remains stable over the next 24 to 48 hours, will plan to transition to home discharge. Elevated troponin likely 2/2 right heart strain, this morning troponins have started trending down. Echocardiogram has been taken and remains pending at this time. 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
--- NOTE | 2020-01-15 13:52 | PC.CHAP ---
Pastoral Care Encounter/Spiritual Assessment Type of Contact [] Declined pointer machine operator visit [] Patient/Family/Request visit [] Outpatient visit [] Follow-up visit [] Physician referral [] Code/Alert [X] Routine visit [] Staff referral [] Actively dying [] Patient sleeping [] Family support [] [] Out of room [] Palliative care [] [] Receiving care in room [] Pre-surgical visit [] Trauma [] Long length of stay [] ICU visit [] Other: Relational/Emotional Strength [] Patient feels connected with others/family/visitors/staff [] Distress [] Loneliness/isolation [] Abandonment Spirituality of Patient [] Person of Yenny [] Attends Congregation of their Yenny [] Believes in Prayer [] Reads Bible or Spiritism materials [] There are Spiritual issues to be addressed Director Clinical Operations Interventions [] Prayer [] Active listening [] Non-anxious presence [] Spiritual/emotional support [] Crisis/trauma care [] Spiritual counseling [] Bereavement support [] Provided bereavement packet [] Provided Bible/devotional materials [] Provided toy/stuffed animal, coloring book to patient or family member [] Provided Communion [] Anointing/[place] [] Salvation [] Completed spiritual assessment [] Other: Impact on Illness or Injury [] Angry [] Fearful [] Anxious [] Often cries [] Exhaustion [] Unable to work [] Unable to attend yarsanism [] Unable to walk/stand [] Unable to read [] Unable to drive [] Unable to eat/drink [] Unable to sleep [] Unable to be with family [] Patient intubated [] Other: Summary Time spent with patient
[2020-01-15 14:02] LABS: Partial Thromboplastin Time 87.5 SECONDS (23.9-36.7)
[2020-01-15 15:33] VITALS: BP 126/97; PULSE 50; RESP 13; TEMP 36.7; O2SAT 94
--- NOTE | 2020-01-15 15:47 | USCV_ITS ---
Olivier Townsend Age: 84 Gender: M : 1935 Exam Date: 01/15/2020 08:04 Ordering Phys: Cally Duke MD Technologist: Jose Antonio Kingsley [place]am [place] [facility] [place]: ? PE HISTORY: Lower extremity swelling. PROCEDURES: The venous duplex Doppler examination of both lower extremities was performed in the standard fashion. The following venous structures were evaluated: common femoral vein, profunda vein, proximal portion of the greater saphenous vein, superficial femoral vein, and the popliteal vein. FINDINGS: RT LEG NO DVT. DVT IN LT GSAPH , CFV AND [facility]V CALLED HOSPITALIST WITH REPORT. Congenic material in the lumen of the common femoral vein causing almost complete occlusion. Features of partial occlusion of the femoral vein. Other veins were found to be 3 compressible on the left side. The right-sided deep veins were found to be easily compressible with spontaneous blood flow. 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 Thrombus also was noted in the greater saphenous vein at the proximal segment. No evidence of deep vein thrombosis on the right side. Compared to the study from 05/11/2015, the deep vein thrombosis appear to be new Dr Nahun Aguayo MD [facility] (Electronically Signed) Final Date: 16 January 2020 09:26 S
[2020-01-15] MEDS: apixaban 5 mg Tablet 10 MG PO (17:56)
[2020-01-15 20:00] VITALS: BP 131/75; PULSE 59; RESP 20; TEMP 36.8; O2SAT 94
--- NOTE | 2020-01-15 23:50 | PC.NURSE ---
Patient resting in bed with eyes closed. Patient's heparin gtt was discontinued on dayshift today and started oral anticoagulants. Patient is cooperative with staff and cares, denies any complaints of pain, Continue care
[2020-01-16] VITALS: BP 112/67; PULSE 51; RESP 14; TEMP 36.9; O2SAT 92
--- NOTE | 2020-01-16 03:16 | PC.NURSE ---
Patient continues to rest well during the night, patient denies any complaints of pain. Continue care.
[2020-01-16 04:00] VITALS: BP 115/70; PULSE 57; RESP 15; TEMP 36.8; O2SAT 94
[2020-01-16 04:59] LABS: Basophils % 0.5 %; Eosinophils # 0.3 10^3/uL (0.0-0.8); Eosinophils % 3.7 %; Hematocrit 50.2 % (42.0-52.0); Hemoglobin 16.3 g/dL (11.7-16.6); Lymphocytes % 25.5 %; Mean Corpuscular HGB Conc 32.5 g/dL (30.0-36.0); Mean Corpuscular Hemoglobin 30.3 pg (28.0-34.0); Mean Corpuscular Volume 93.3 fL (80-94); Mean Platelet Volume 9.6 fL (7.4-10.4); Monocytes # 0.8 10^3/uL (0.2-0.9); Monocytes % 10.3 %; Neutrophils # 4.59 10^3/uL (1.8-7.7); Neutrophils % 59.9 %; Nucleated Red Blood Cells % 0 %; Platelet Count 195 10^3/cmm (130-400); Red Blood Count 5.38 10^6/uL (4.1-5.3); Red Cell Distribution Width 13.5 % (12.1-15.1); White Blood Count 7.7 10^3/uL (4.0-10.0)
[2020-01-16 05:23] LABS: Alanine Aminotransferase 11 U/L (0-41); Albumin Level 3.9 g/dL (3.5-5.2); Alkaline Phosphatase 47 IU/L (40-130); Anion Gap 13.4 (5-19); Aspartate Amino Transferase 14 U/L (0-40); Blood Urea Nitrogen 22 mg/dL (8-23); Calcium 9.1 mg/dL (8.5-10.5); Carbon Dioxide 25 mmol/L (22-29); Chloride 103 mmol/L (98-107); Globulin 2.5 g/dL (1.3-4.6); Glucose 98 mg/dL (65-115); Osmolality Calculated 287 mOsm/kg (285-295); Potassium 4.4 mmol/L (3.5-5.1); Sodium 137 mmol/L (136-145); Total Bilirubin 0.8 mg/dL (0.15-1.2); Total Protein 6.4 g/dL (6.6-8.7)
[2020-01-16 07:23] VITALS: BP 124/89; PULSE 63; RESP 16; TEMP 36.4; O2SAT 92
--- NOTE | 2020-01-16 08:00 | PC.NURSE ---
pt resting in bed. assessment perfromed. no concerns at this time. call light within place. will continue to monitor.
[2020-01-16] MEDS: carvedilol 3.125 mg Tablet PO (08:22)
[2020-01-16] MEDS: apixaban 5 mg Tablet 10 MG PO (08:22)
[2020-01-16] MEDS: aspirin 81 mg EC Tablet PO (08:22)
--- NOTE | 2020-01-16 10:49 | P.DS_ITS ---
Discharge Providers Date of Admission: 01/14/20 13:40 Date of Discharge: January 16, 2020 Attending Provider at Admission: Cally Duke MD Attending Provider at Discharge: Cally Duke MD Primary Care Provider: WILLARD Salamanca Diagnoses at Discharge Discharge Diagnosis (1) Pulmonary embolism: Status: Acute Qualifiers: Acute cor pulmonale presence: unspecified Chronicity: acute Pulmonary embolism type: unspecified Qualified Code(s): I26.99 - Other pulmonary embolism without acute cor pulmonale (2) Essential hypertension: Status: Acute Reason for Visit Reason for Visit: RAPID HEART BEAT Hospital Course Discharge Summary: Patient is a 84-year-old male with a past medical history of PE around 5 years ago at which time he was on anticoagulation, subsequently discontinued after approximately 1 years of therapy per his history. Reportedly other work-up was negative at that time,. He presented to the ED with complaint of sudden onset of palpitations on the morning of admission.-With chest pain which later subsided. Upon presentation here he was found to have large bilateral PE. There was a significant embolic burden within the pulmonary arteries with complete occlusion beginning in the distal right main pulmonary artery with emboli branching into the upper middle and lower lobes. There is occlusive emboli in the subsegmental branches of the left lower lobe. He additionally underwent a venous duplex which showed features of DVT causing near total occlusion of the left common femoral vein and partial occlusion of the femoral vein. Thrombus was also noted in the greater saphenous assessment. No evidence of DVT on the right side. Patient denies any recent immobilization, however he does report he has been experiencing pain in his left thigh at least for the last 2 to 3 weeks. He does not have a known history of malignancy. Echocardiogram was also performed which showed normal LVEF of 59%, grade 1 diastolic dysfunction. There was normal right ventricular size and systolic function. There was mildly dilated left atrium. Mild to moderate tricuspid valve regurgitation. There was no significant change compared to the study in 2016. Patient was clinically doing well during the course of admission. He remained hemodynamically stable through. He has been on room air since admission. Home O2 eval was additionally performed prior to discharge and he remained above 92% during the course. He denies any current chest pain dyspnea or palpitations. He is being discharged today after heparin anticoagulation has been transitioned to oral Eliquis , take 10 mg po BID for the first 7 days followed by 5 mg twice daily. We will additionally refer him to hematology service for recurrent DVT with PE, may need further evaluation for underlying thrombophilic states and possibly malignancy Physical Exam Narrative: EXAM NARRATIVE: GEN: Awake, alert and oriented, no acute distress CVS: S1S2 N RS: CTA B/L Abd: Soft, nt/nd , bs+ DIRECTOR AND PROFESSOR: no focal neuro deficits Discharge Data Data Completed and Pending: Completed Studies During Hospitalization Category Date Time Status CT angio chest PE protcl [id number] Urge nt Cat Scan 01/14/20 11:25 Completed XR chest 1V shruti ble [id number] Stat Exams 01/14/20 11:15 Completed CV echo complete* [id number] Routine Ultrasound 01/15/20 07:00 [place] [id number] Routin e Ultrasound 01/15/20 15:47 Completed Pending at discharge Category Date Time Status Complete Blood Co unt w/Auto AM LABS Lab 01/17/20 04:00 Ordered Comprehensive Met abolic Panel AM LA BS Lab 01/17/20 04:00 Ordered Labs from last 24 hours 01/16/20 01/16/20 01/15/20 04:35 04:35 13:22 WBC 7.7 RBC 5.38 H Hgb 16.3 Hct 50.2 MCV 93.3 MCH 30.3 MCHC 32.5 RDW 13.5 Plt Count 195 MPV 9.6 Neut % (Auto) 59.9 Lymph % (Auto) 25.5 [place] % (Auto) 10.3 Eos % (Auto) 3.7 Baso % (Auto) 0.5 Neut # (Auto) 4.59 Lymph # (Auto) 2.0 [place] # (Auto) 0.8 Eos # (Auto) 0.3 Baso # (Auto) 0.0 Nucleated RBC % (a uto) 0 Nucleated RBCs # 0.0 APTT 87.5 H Sodium 137 Potassium 4.4 Chloride 103 Carbon Dioxide 25 Anion Gap 13.4 BUN 22 Creatinine 1.0 GFR Calculation Not Reportable Glucose 98 Calculated Osmolal ity 287 Calcium 9.1 Total Bilirubin 0.8 AST 14 ALT 11 Alkaline Phosphata se 47 Troponin T Gen 5 n g/L Total Protein 6.4 L Albumin 3.9 Globulin 2.5 01/15/20 04:50 WBC RBC Hgb Hct MCV MCH MCHC RDW Plt Count MPV Neut % (Auto) Lymph % (Auto) [place] % (Auto) Eos % (Auto) Baso % (Auto) Neut # (Auto) Lymph # (Auto) [place] # (Auto) Eos # (Auto) Baso # (Auto) Nucleated RBC % (a uto) Nucleated RBCs # APTT Sodium Potassium Chloride Carbon Dioxide Anion Gap BUN Creatinine GFR Calculation Glucose Calculated Osmolal ity Calcium Total Bilirubin AST ALT Alkaline Phosphata se Troponin T Gen 5 n g/L 45 H Total Protein Albumin Globulin Vitals: Last Vital Signs Temp 97.5 F L 01/16/20 07:23 Pulse 63 01/16/20 07:23 Resp 16 01/16/20 07:23 BP 124/89 01/16/20 07:23 Pulse Ox 92 01/16/20 07:23 Discharge Plan Discharge Patient Disposition: Home Condition: Stable Prescriptions: New Eliquis 5 mg Tablet See Rx Instructions .ROUTE .COMPLEX Qty: 90 RF: 0 Continued carvedilol 3.125 mg tablet 3.125 mg PO BID 90 Days Qty: 180 RF: 3 Zyrtec 10 mg capsule 10 mg PO DAILY 90 Days Qty: 90 RF: 3 aspirin 81 mg Tablet,Delayed Release (Dr/Ec) 81 mg PO DAILY RF: 0 Vitamin D3 1 tab PO DAILY RF: 0 Discharge Orders: Discharge Order (Routine); Ordered 01/16/20 Ordered By: Cally Duke Referrals: Dann Prado FNP [Primary Care Provider] - 4-7 days (hospital discharge follow up ) Dimitrios Stockton MD [Hospitalist] - (recurrent PE and DVT, 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, appears unprovoked, ?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 ) Discharge Diet: Usual diet Discharge Activity: Resume usual activity Discharge Attestations Time Spent in Discharge Care*: greater than 30 min Quality Metrics Clinical Quality Measures During this hospital stay, did patient experience: VTE Contraindication to Overlap Therapy: Overlap therapy prescribed VTE Discharge Education: Education about anticoagulant therapy/Care Notes given Deep Vein Thrombosis/Pulmonary Embolism Present on Admission: Yes Coding Level of Care Code Acute Fruit Dryer for g Fwd Diagnoses Pulmonary embolism I26.99 Acute cor pulmonale presence: unspecified Chronicity: acute Pulmonary embolism type: unspecified Essential hypertension I10
[2020-01-16 11:15] VITALS: BP 123/93; PULSE 58; RESP 13; TEMP 36.7; O2SAT 96
[2020-01-16 11:36] VITALS: O2SAT 94; O2SAT 96
[2020-01-16 11:54] VITALS: BP 123/93; PULSE 58; RESP 13; TEMP 36.7; O2SAT 96
--- NOTE | 2020-01-16 12:22 | CT_ITS ---
WS: [id number] CT HEAD NONCONTRAST HISTORY: facial asymmetry, evaluate for bleed TECHNIQUE: Contiguous axial imaging performed through the brain in 2.5 mm imaging. Bone and soft tiss ue windows. Sagittal and coronal reformats reviewed. All CT scans at [facility] use at le ast one of these dose optimization techniques: automated exposure control; mA and/or kV adjustment pe r patient size (includes targeted exams where dose is matched to clinical indication); or iterative r econstruction. DLP: 864.22 mGy.cm COMPARISON: None available. No acute intracranial hemorrhage, midline shift or mass effect. Mild atrophy and moderate chronic microvascular ischemic changes. Small lacunar infarcts in the cauda te heads. Ventricles: Normal size with no hydrocephalus. Paranasal sinuses: As visualized are clear. Mastoid air cells: Well pneumatized. Calvarium and scalp: Skull is intact with no soft tissue edema or swelling. CT/CT head wo con* [id number] IMPRESSION: 1. No acute intracranial hemorrhage or edema. 2. Mild cerebral atrophy and chronic ischemic disease.
--- NOTE | 2020-01-16 12:30 | PC.NURSE ---
stat head ct ordered per dr mclaughlin. to be done before pt leaves. pt transported to ct by wheelchair.
--- NOTE | 2020-01-16 14:26 | PC.NURSE ---
ct read. dr vernon to discharge. discharge instructions given. all questions answered at this time. iv removed, tip intact. pt transported to private vehicle by wheelchair.
== END 2020-01-16 14:24 | disposition home or self-care (01) | DRG 299 ==
LOC: ER 13:35 → CSU 14:38
PROVIDERS: Emergency Medicine; Hospitalist; Admitting Provider Student in an Organized Health Care Education/Training Program; Family Provider Nurse Practitioner Family; PCP Registered Nurse; Visit Provider Student in an Organized Health Care Education/Training Program
DX: I82.412 Acute embolism and thrombosis of left femoral vein (principal); I26.09 Other pulmonary embolism with acute cor pulmonale; I82.4Y2 Acute embolism and thrombosis of unspecified deep veins of left proximal lower extremity; I07.1 Rheumatic tricuspid insufficiency; I10 Essential (primary) hypertension; Z86.718 Personal history of other venous thrombosis and embolism; Z79.82 Long term (current) use of aspirin
CPT/HCPCS: 12345; 36415; 70450; 71045; 71275; 80053; 84484; 85025; 85610; 85730; 87426; 93005; 93306; 93970; 96372; 99283; J1644; J1650; Q9967

== ENCOUNTER 2020-01-18 16:02 | Emergency (ER) | payer MEDICARE, OTHER, SELFPAY ==
[2020-01-18 16:09] VITALS: BP 173/90; PULSE 68; RESP 18; TEMP 36.7; O2SAT 97; BMI 27.8
--- NOTE | 2020-01-18 16:16 | ECG_ITS ---
[facility] Test Date: 2020-01-18 Pat Name: Olivier Townsend Department: Room: Gender: Male Manager Of Patient: : 1935 Requested By: Shiva Lyon Order Number: [id number] Bro MD: Kt Callahan M.D. Measurements Intervals [place] Rate: 60 P: 13 [place]: 178 QRS: -13 QRSD: 100 T: 47 QT: 410 QTc: 410 Interpretive Statements SINUS RHYTHM WITH OCCASIONAL SUPRAVENTRICULAR PREMATURE COMPLEXES Compared to ECG 01/14/2020 18:08:28 No significant changes Electronically Signed On 01-19-2020 20:29:15 CDT by Kt Callahan M.D. [email or web address]
[2020-01-18 17:06] LABS: Basophils # 0.1 10^3/uL (0.0-0.1); Eosinophils # 0.2 10^3/uL (0.0-0.8); Eosinophils % 3.4 %; Hematocrit 51.3 % (42.0-52.0); Lymphocytes # 1.2 10^3/uL (0.8-4.8); Lymphocytes % 24.2 %; Mean Corpuscular HGB Conc 33.1 g/dL (30.0-36.0); Mean Corpuscular Hemoglobin 30.5 pg (28.0-34.0); Mean Corpuscular Volume 92.1 fL (80-94); Mean Platelet Volume 9.6 fL (7.4-10.4); Neutrophils # 2.55 10^3/uL (1.8-7.7); Neutrophils % 50.8 %; Nucleated Red Blood Cells % 0 %; Platelet Count 208 10^3/cmm (130-400); Red Blood Count 5.57 10^6/uL (4.1-5.3); Red Cell Distribution Width 13.3 % (12.1-15.1)
--- NOTE | 2020-01-18 17:09 | ED_ITS ---
HPI - General Adult General: Chief complaint: General Medical Stated complaint: BP Issues Time Seen by Provider: 01/18/20 17:09 History of Present Illness: HPI narrative: Patient is an 84-year-old male comes the ED with elevated blood pressure. Patient has a past medical history of hypertension and pulmonary embolism. Patient was recently hospitalized for PE here at [facility] [place] and was released on and is currently taking Eliquis. Patient says he felt a little funny in his head last night and checked his blood pressure and it was elevated and he said his systolic blood pressure was 180. Patient takes carvedilol for his blood pressure. He denies any neurological symptoms such as vision changes, numbness or tingling or weakness to face or extremities. Associated symptoms: Deny chest pain, dyspnea, headache(s), nausea, rash, palpitations or vomiting Review of Systems Const: Denies: fever(s), chills or fatigue Eyes: Denies: change in vision or eye discomfort ENMT: Denies: throat pain, odynophagia, nasal discharge or nasal congestion Card: Reports: lightheadedness; Denies: chest pain, palpitations, edema, swelling of feet/ankles, dyspnea on exertion or orthopnea Resp: Denies: dyspnea, productive cough or non-productive cough GI: Denies: abdominal pain, nausea, vomiting, diarrhea, constipation or hematochezia : Denies: flank pain, difficulty urinating, dysuria or hematuria Musc: Denies: neck pain, back pain or extremity swelling Skin/Breast: Denies: rash or new lesions Neuro: Denies: headache(s), numbness in extremities or weakness in extremities PFS ED PFSH: Medical History Essential hypertension Family History Other Cancer Social History Smoking and tobacco status: never smoked Physical Exam Const: COMMON NORMALS: no acute distress, patient oriented x3, healthy appearing and alert GENERAL APPEARANCE: cooperative and comfortable HENMT: COMMON NORMALS: normocephalic HEAD & SCALP: normocephalic MOUTH: Normal oral and palatal mucosa present THROAT: posterior oropharynx normal and uvula midline Eye: COMMON NORMALS: Equal, round and reactive pupils present PUPIL: Yes Equal, round and reactive pupils present Neck/C-Spine: COMMON NORMALS: supple GENERAL: Yes normal visual inspection Resp: COMMON NORMALS: normal respiratory effort, No retractions, No use of accessory muscles and clear to auscultation bilaterally EFFORT & INSPECTION: Yes able to speak in complete sentences AUSCULTATION: clear to auscultation bilaterally Cardio: COMMON NORMALS: regular rate, regular rhythm, S1 normal heart sound p resent, S2 normal heart sound present, No gallops present (Cardio), No clicks present (Cardio), No murmurs present (Cardio) and Peripheral pulses 2+ throughout RATE: regular rate RHYTHM: regular rhythm HEART SOUNDS: S1 normal heart sound present and S2 normal heart sound present PERIPHERAL PULSES: Peripheral pulses 2+ throughout GI: COMMON NORMALS: Normal to inspection, nondistended, normoactive bowel sounds present, Soft to palpation, non-tender and no masses PALPATION: Yes Soft to palpation : COMMON NORMALS: Yes no CVA tenderness BLADDER/KIDNEY EXAM: Yes no CVA tenderness Back/Pelvis: COMMON NORMALS: no CVA tenderness Extremity: COMMON NORMALS: normal to inspection and no pedal edema Neuro: COMMON NORMALS: patient oriented x3, CN's II-XII intact bilaterally and moves all extremities SENSORIUM/ORIENTATION: Yes alert SPEECH: speech normal MOTOR EXAM: 5/5 motor strength present throughout Skin: COMMON NORMALS: no rashes or lesions noted GENERAL SKIN EXAM: no rashes or lesions noted and dry skin Course Vital Signs: Vital signs: Vital Signs Temperature 98.1 F 01/18/20 16:09 Pulse Rate 56 L 01/18/20 18:59 Respiratory Rate 18 01/18/20 18:59 Blood Pressure 135/66 01/18/20 18:59 Pulse Oximetry 98 01/18/20 18:59 MDM - General Adult MDM Narrative: Medical decision making narrative: Patient is an 84-year-old male comes to the ED with complaints of elevated blood pressures at home and lightheaded feeling. Patient has no other symptoms besides feeling a little lightheaded and denies any neurological symptoms such as vision changes, numbness tingling or weakness to extremities. Physical exam shows patient is healthy and in no acute distress. Blood pressure upon arrival was 173/90 and never got higher than this throughout his time in the ED. CBC and CMP were unremarkable. BNP 37. Troponin negative and EKG normal sinus rhythm with no ST segment elevation or depression seen.. Chest x-ray showed no acute findings. Patient was diagnosed with essential hypertension and told to continue taking his home medications. Follow-up with his PCP in 7 to 10 days for reevaluation. Return to ED precautions given. Lab Data: Attestation: I reviewed the patient's lab results. Labs: Lab Results 01/18/20 01/18/20 01/18/20 Range/Units 16:50 16:50 16:50 WBC 5.0 (4.0-10.0) 10^3/ uL RBC 5.57 H (4.1-5.3) 10^6/u L Hgb 17.0 H (11.7-16.6) g/dL Hct 51.3 (42.0-52.0) % MCV 92.1 (80-94) fL MCH 30.5 (28.0-34.0) pg MCHC 33.1 (30.0-36.0) g/dL RDW 13.3 (12.1-15.1) % Plt Count 208 (130-400) 10^3/c mm MPV 9.6 (7.4-10.4) fL Neut % (Auto) 50.8 % Lymph % (Auto) 24.2 % [place] % (Auto) 20.0 % Eos % (Auto) 3.4 % Baso % (Auto) 1.0 % Neut # (Auto) 2.55 (1.8-7.7) 10^3/u L Lymph # (Auto) 1.2 (0.8-4.8) 10^3/u L [place] # (Auto) 1.0 H (0.2-0.9) 10^3/u L Eos # (Auto) 0.2 (0.0-0.8) 10^3/u L Baso # (Auto) 0.1 (0.0-0.1) 10^3/u L Nucleated RBC % (a uto) 0 % Nucleated RBCs # 0.0 /100WBC Sodium 134 L (136-145) mmol/L Potassium 4.1 (3.5-5.1) mmol/L Chloride 100 (98-107) mmol/L Carbon Dioxide 28 (22-29) mmol/L Anion Gap 10.1 (5-19) BUN 19 (8-23) mg/dL Creatinine 0.9 (0.7-1.2) mg/dL GFR Calculation Not Reportable Glucose 101 (65-115) mg/dL Calculated Osmolal ity 280 L (285-295) mOsm/k g Calcium 9.4 (8.5-10.5) mg/dL Troponin T Baselin e 15 (0-15) ng/L NT-Pro-B Natriuret Pep (0-450) pg/mL 01/18/20 Range/Units 16:50 WBC (4.0-10.0) 10^3/ uL RBC (4.1-5.3) 10^6/u L Hgb (11.7-16.6) g/dL Hct (42.0-52.0) % MCV (80-94) fL MCH (28.0-34.0) pg MCHC (30.0-36.0) g/dL RDW (12.1-15.1) % Plt Count (130-400) 10^3/c mm MPV (7.4-10.4) fL Neut % (Auto) % Lymph % (Auto) % [place] % (Auto) % Eos % (Auto) % Baso % (Auto) % Neut # (Auto) (1.8-7.7) 10^3/u L Lymph # (Auto) (0.8-4.8) 10^3/u L [place] # (Auto) (0.2-0.9) 10^3/u L Eos # (Auto) (0.0-0.8) 10^3/u L Baso # (Auto) (0.0-0.1) 10^3/u L Nucleated RBC % (a uto) % Nucleated RBCs # /100WBC Sodium (136-145) mmol/L Potassium (3.5-5.1) mmol/L Chloride (98-107) mmol/L Carbon Dioxide (22-29) mmol/L Anion Gap (5-19) BUN (8-23) mg/dL Creatinine (0.7-1.2) mg/dL GFR Calculation Glucose (65-115) mg/dL Calculated Osmolal ity (285-295) mOsm/k g Calcium (8.5-10.5) mg/dL Troponin T Baselin e (0-15) ng/L NT-Pro-B Natriuret Pep 37 (0-450) pg/mL Imaging Data^: CXR: Attestation: I personally reviewed and interpreted this imaging study as follows: Radiologist's impression: [address] [address] XRay Report Signed Patient: Olivier Townsend Unit #: [id number] : 1935 8 Age/Sex: 84 / M ADM Date: 01/18/20 Loc: ER Room/Bed: Attending Dr: Ordering Provider/Ordering MD: Solitario Ch Date of Service: 01/18/20 Procedure(s): XR chest 1V portable [id number] Accession Number(s): [id number] Report Number: [id number] PROCEDURE INFORMATION: Exam: XR Chest, 1 View Exam date and time: 01/18/2020 5:33 PM Age: 84 years old Clinical indication: Shortness of breath; Additional info: SOB TECHNIQUE: Imaging protocol: XR of the chest Views: 1 view. COMPARISON: CR XR chest 1V portable [id number] 01/14/2020 11:36 AM FINDINGS: Lungs: Unremarkable. No consolidation. Evidence of antecedent granulomatous disease. Pleural space: Unremarkable. No pleural effusion. No pneumothorax. Heart/Mediastinum: Mild arteriosclerosis. No cardiomegaly. Bones/joints: Unremarkable. XR/XR chest 1V portable [id number] IMPRESSION: No acute findings. Dictated By: Frank Boogie Signed By: Frank Boogie Signed Date/Time: 01/18/201806 DD/ 04 EKG Data^: EKG 1: Attestation: I personally reviewed and interpreted this EKG as follows: EKG interpretation date: 01/18/20 Computer generated interpretation: Chest X-Ray 01/18/20 17:11 IMPRESSION: No acute findings. Normal sinus rhythm with SVC's occasionally. [address] segment elevation or depression seen. Discharge Plan Discharge Patient Disposition: Home Clinical Impression: Essential hypertension Condition: Stable Prescriptions: No Action carvedilol 3.125 mg tablet 3.125 mg PO BID 90 Days Qty: 180 RF: 3 Zyrtec 10 mg capsule 10 mg PO DAILY 90 Days Qty: 90 RF: 3 aspirin 81 mg Tablet,Delayed Release (Dr/Ec) 81 mg PO DAILY RF: 0 Vitamin D3 1 tab PO DAILY RF: 0 Eliquis 5 mg Tablet See Rx Instructions .ROUTE .COMPLEX Qty: 90 RF: 0 Discharge Orders: Discharge Order (Routine); Ordered 01/18/20 Ordered By: Solitario Ch Referrals: Dann Prado FNP [Primary Care Provider] - Discharge Diet: Regular Discharge Activity: Increase activity as tolerated Patient Instructions: Hypertension (ED) Activity Restrictions/Additional Instructions: Follow-up with medical provider as directed in 5 to 7 days. Continue taking all home medications as prescribed. Return to the ER or your medical provider if condition worsens. Please read and understand discharge instructions. If any questions, please ask. Discharge Date/Time: 01/18/20 18:59 Coding Level of Care Code ED [employer] P[employer] for [facility] Fwd Exam Comprehensive
--- NOTE | 2020-01-18 17:11 | XRR_ITS ---
PROCEDURE INFORMATION: Exam: XR Chest, 1 View Exam date and time: 01/18/2020 5:33 PM Age: 84 years old Clinical indication: Shortness of breath; Additional info: SOB TECHNIQUE: Imaging protocol: XR of the chest Views: 1 view. COMPARISON: CR XR chest 1V portable [id number] 01/14/2020 11:36 AM FINDINGS: Lungs: Unremarkable. No consolidation. Evidence of antecedent granulomatous disease. Pleural space: Unremarkable. No pleural effusion. No pneumothorax. Heart/Mediastinum: Mild arteriosclerosis. No cardiomegaly. Bones/joints: Unremarkable. XR/XR chest 1V portable [id number] IMPRESSION: No acute findings.
[2020-01-18 17:32] LABS: Anion Gap 10.1 (5-19); Blood Urea Nitrogen 19 mg/dL (8-23); Calcium 9.4 mg/dL (8.5-10.5); Carbon Dioxide 28 mmol/L (22-29); Chloride 100 mmol/L (98-107); Glucose 101 mg/dL (65-115); Osmolality Calculated 280 mOsm/kg (285-295); Potassium 4.1 mmol/L (3.5-5.1); Sodium 134 mmol/L (136-145)
[2020-01-18 17:56] VITALS: BP 166/99; PULSE 55; RESP 17; O2SAT 97
[2020-01-18 17:57] VITALS: O2SAT 97
[2020-01-18 18:03] LABS: Troponin(5th) Baseline 15 ng/L (0-15)
[2020-01-18 18:08] LABS: NT Pro B Type Natriuretic Pept 37 pg/mL (0-450)
[2020-01-18 18:56] VITALS: BP 135/66; PULSE 56; RESP 18; O2SAT 98
[2020-01-18 18:59] VITALS: BP 135/66; PULSE 56; RESP 18; O2SAT 98
== END 2020-01-18 18:59 | disposition home or self-care (01) ==
PROVIDERS: Family Medicine; Emergency Provider Physician Assistant; PCP Registered Nurse
DX: I10 Essential (primary) hypertension (principal); Z79.82 Long term (current) use of aspirin; Z79.01 Long term (current) use of anticoagulants
CPT/HCPCS: 12345; 36415; 71045; 80048; 83880; 84484; 85025; 93005; 99282; 99283

== ENCOUNTER 2020-02-13 12:48 | Outpatient (CLI) | payer MEDICARE, OTHER, SELFPAY ==
--- NOTE | 2020-02-13 17:45 | ONC CON_ITS ---
Dr. Stockton New Patient Note Patient: Olivier Townsend Unit #: [id number]: 1935 Dicatated By: Dimitrios Stockton M.D.Date of Visit: Feb 13, 2020 Onc MED New Patient/Consult Referring Physician: Dr. Cally Duke Chief Complaint: Pulmonary embolism. History of Present Illness: This is an 84-year-old man with recurrent thromboembolism, including recent left lower extremity deep vein thrombosis and bilateral pulmonary emboli. He has a history of having been treated for a significant episode of pulmonary embolism back in April 2015. His CT pulmonary angiogram at that time showed severe pulmonary embolic burden involving all lobes with a small saddle embolism. There was no right heart strain on echocardiogram. It apparently was unprovoked, and there was no associated deep vein thrombosis by venous Doppler. He was treated initially with Lovenox and then transitioned to warfarin. Somewhere in the range of 2 years ago he was taken off warfarin. By his recollection he was not having any particular problems at the time. On 01/14/2020 he had presented to the emergency room with acute onset of shortness of breath and heart racing. His CT pulmonary angiogram again showed a significant bilateral pulmonary embolic burden. On this occasion his lower extremity venous Doppler showed features of deep vein thrombosis causing near total occlusion of the left common femoral vein and partial occlusion of the femoral vein. Thrombus also was noted in the greater saphenous vein at the proximal segment. He was not overtly symptomatic with the DVT. Echocardiogram showed normal LV systolic function with ejection fraction 59%. Also noted was normal right ventricular size and systolic function. There is mild to moderate tricuspid valve regurgitation. The estimated pulmonary artery peak systolic pressure was 40 mmHg. Following admission to the hospital he was treated initially on a heparin drip, but at discharge his anticoagulation was transitioned to apixaban 10 mg twice daily for 7 days, then continued at 5 mg twice daily. His subsequent clinical course was complicated by development of COVID-19 virus infection, but he has had uneventful recovery. He says he is feeling fairly good now. He still has limited activity, but he is starting to get his energy back. ECOG score is 2. He has good appetite. He had low-grade fever for 8 days with the COVID-19 infection, but that has now resolved. He has not had night sweating. He says his breathing is okay now. He does not have cough and he does not complain of chest pain. For a while after discharge from the hospital he was still having episodes of heart racing, but that has now completely resolved. He has no GI complaints. He has frequent urination, both during the daytime and at night. He had developed some pain in the right lower back when he first got home from the hospital, but that also has resolved. 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 He has no other joint or bone pain. He does not complain of headache or dizziness. He has no focal neurologic symptoms. Past Medical History: His medical history includes allergic rhinitis, benign prostatic hypertrophy, and hypertension. He has a history of pulmonary embolism in April 2015. Past Surgical History: His surgical/procedural history includes cholecystectomy, inguinal hernia repair bilaterally, and TURP. Medications: Aspirin 1 Tablet (of 81 mg) Tablet, enteric coated Oral daily, Carvedilol 1 Tablet (of 3.125 mg) Oral daily, Cetirizine HCl 1 Tablet (of 10 mg) Oral daily, Eliquis 1 Tablet (of 5 mg) Oral b.i.d., Vitamin D 1 Tablet Oral daily Allergies: No Known Allergies. Social History: Mr. Townsend is . Mr. Townsend quit smoking 52 years ago but had smoked 0.5 packs/day for 16 years. He is a former drinker. He has a history of smoking 1 pack of cigarettes daily for 16 years. He quit at age 32. He had some alcohol use during that time, but not heavy, and that he also quit at age 32. Family History: Both parents lived into their upper 90s and of natural causes . He has 14 brothers and sisters. One brother has cancer. He has 8 children, 2 of whom are , one as a result of motor vehicle accident and the other of suspected stroke. Review Of Symptoms: Constitutional - He generally feels good. His energy is improving but he still gets fatigued easily. His appetite is good and weight is stable. He recently had COVID-19 and ran fevers for about 8 days. No night sweats or hot flashes. ECOG score is 2, Eyes - He reports gradual visuals decline, ENMT - He has hearing loss. No tinnitus. He has chronic allergy related sinus symptoms. No mouth sores. No sore throat or difficulty swallowing, Hematologic/Lymphatic - He bruises easily, Respiratory - His breathing is OK now. No cough. No pleuritic pain or hemoptysis, Cardiovascular - No angina pain. He was having episodes of feeling like his heart is racing. This has improved, Gastrointestinal - No nausea or vomiting. No heartburn or acid reflux. No diarrhea or constipation. No blood in the stool or black stools, Genitourinary (M) - No dysuria or hematuria. He has urinary frequency both day and night. No urgency or incontinence, Musculoskeletal - He has having lower back pain on the right side, but that has resolved. He has arthritis pain in his left wrist, Integumentary - No skin complications, Neurologic - No headache or dizziness. No numbness or tingling. No other focal neurologic symptoms, Psychiatric - No anxiety or depression. He has occasional difficulty sleeping. Vital Signs: Performed on Feb 13, 2020 13:56: 3, 27.21, 2.13 sq.m, 72.00 in, 97 %, 70 /min, 18 /min, 135/89 mm(hg), 98.0 F (LOW), and 200.6 lbs (HIGH). Physical Examination: Constitutional - He appears to be in good general health, Eyes - Sclerae nonicteric. Conjunctivae clear, ENMT - No lesions noted in the oral cavity, Neck - No mass or thyromegaly, Hematologic/Lymphatic - No cervical, clavicular, or axillary adenopathy, Respiratory - Lungs are clear with good air movement bilaterally, Cardiovascular - Heart rhythm is regular with some premature beats. There is no murmur, gallop, or rub noted, Abdomen - Soft. Liver and spleen are not enlarged. There is no abdominal mass or ascites noted and there is no inguinal adenopathy, Back/Spine - No spine or CVA tenderness noted, Extremities - No edema. Dorsalis pedis pulses are palpable bilaterally, Integumentary - No rashes. No suspicious skin lesions noted, Neurologic - No focal neurologic deficits noted. Impression: 1. Patient with recurrent thromboembolism in the form of a recent episode of left lower extremity deep vein thrombosis and significant bilateral pulmonary emboli. 2. He was previously treated for bilateral pulmonary emboli in April 2015. Both episodes were unprovoked. He had been taken off anticoagulation with warfarin approximately 2 years ago, though for no apparent reason. His other medical illnesses include: 3. Hypertension. 4. Allergic rhinitis. 5. Benign prostatic hypertrophy. Plan: This patient recently experienced his second episode of significant pulmonary embolism. He was off anticoagulation with the second episode. Although these episodes were unprovoked, there appears to be a low probability of underlying hereditary thrombophilia, as he has 14 siblings and 6 living children, none of whom have had any history of thromboembolism. Given the interval between the episodes, it is also very unlikely that it would be due to underlying malignancy. As such, I do not think there is any need for additional evaluation, but the patient is advised that he needs to continue anticoagulation indefinitely. Assuming he does well on the apixaban, he can be transition to a maintenance dosage after 6 months of treatment. I will plan to see him for a follow-up visit at that time, or sooner as needed. Signed By: Dimitrios Stockton M.D. <<Signature on File>>
== END 2020-02-13 12:49 | disposition home or self-care (01) ==
LOC: ONCMED 12:57
PROVIDERS: PCP Registered Nurse; Visit Provider Internal Medicine Medical Oncology
DX: I26.99 Other pulmonary embolism without acute cor pulmonale (principal); Z23 Encounter for immunization; Z86.718 Personal history of other venous thrombosis and embolism; Z79.01 Long term (current) use of anticoagulants; I10 Essential (primary) hypertension; J30.9 Allergic rhinitis, unspecified; N40.0 Benign prostatic hyperplasia without lower urinary tract symptoms; Z86.19 Personal history of other infectious and parasitic diseases
CPT/HCPCS: 90471; 90686; 99204

== ENCOUNTER 2020-06-30 10:02 | Outpatient (CLI) | payer MEDICARE, OTHER, SELFPAY ==
--- NOTE | 2020-06-30 10:36 | ONC FU_ITS ---
Dr. Stockton Patient Follow-Up Note Patient: Olivier Townsend Unit #: [id number]: 1935 Dicatated By: Dimitrios Stockton M.D.Date of Visit:Jun 30, 2020 Onc Med Follow-up/Prog Note Chief Complaint: Pulmonary embolism. History of Present Illness: This is an 85 year-old man with recurrent thromboembolism, including recent left lower extremity deep vein thrombosis and bilateral pulmonary emboli. He has a history of having been treated for a significant episode of pulmonary embolism back in April 2015. His CT pulmonary angiogram at that time showed severe pulmonary embolic burden involving all lobes with a small saddle embolism. There was no right heart strain on echocardiogram. It apparently was unprovoked, and there was no associated deep vein thrombosis by venous Doppler. He was treated initially with Lovenox and then transitioned to warfarin. Sometime around 2017 he was taken off warfarin. By his recollection he was not having any particular problems at the time. On 01/14/2020 he had presented to the emergency room with acute onset of shortness of breath and heart racing. His CT pulmonary angiogram again showed a significant bilateral pulmonary embolic burden. On this occasion his lower extremity venous Doppler showed features of deep vein thrombosis causing near total occlusion of the left common femoral vein and partial occlusion of the femoral vein. Thrombus also was noted in the greater saphenous vein at the proximal segment. He was not overtly symptomatic with the DVT. Echocardiogram showed normal LV systolic function with ejection fraction 59%. Also noted was normal right ventricular size and systolic function. There is mild to moderate tricuspid valve regurgitation. The estimated pulmonary artery peak systolic pressure was 40 mmHg. Following admission to the hospital he was treated initially on a heparin drip, but at discharge his anticoagulation was transitioned to apixaban 10 mg twice daily for 7 days, then continued at 5 mg twice daily. His subsequent clinical course was complicated by development of COVID-19 virus infection, but he had an uneventful recovery. I had seen him initially on 02/13/2020. By clinical assessment, he appeared to be at low risk for hereditary thrombophilia or for underlying malignancy, and I did not feel that any further evaluation was indicated, but I did recommend that he continue with long-term anticoagulation. His other medical illnesses include hypertension, allergic rhinitis, and benign prostatic hypertrophy. He has a history of smoking 1 pack of cigarettes daily for 16 years, but he quit smoking at age 32. He is seen for a follow-up visit. He has been feeling good generally. He has good energy and activity tolerance. His ECOG score is 0. He has good appetite. He has gained weight. He does not have fever or night sweats. His main complaint is that he has had a rough spell with his sinuses for most of the entire winter. It has just recently been getting better. He has not had sore mouth or throat, and he has no shortness of breath, cough, or chest pain. He has no GI or complaints. He does have some joint pain, mainly in the wrists and legs, but that has been going on for years and is unchanged. He does not complain of headache or dizziness and he has no focal neurologic symptoms. He does have some bruising, but no other bleeding manifestations. Medications: Aspirin 1 Tablet (of 81 mg) Tablet, enteric coated Oral daily, Carvedilol 1 Tablet (of 3.125 mg) Oral daily, Cetirizine HCl 1 Tablet (of 10 mg) Oral daily, Eliquis 1 Tablet (of 5 mg) Oral b.i.d., Vitamin D 1 Tablet Oral daily Allergies: No Known Allergies. Vital Signs: Performed on Jun 30, 2020 10:17 Height - 72.00 in Weight - 209 lbs (HIGH) BSA - 2.17 sq.m BMI - 28.35 Temperature - 97.0 F (LOW) Pulse - 53 /min (LOW) Respiration - 18 /min BP - 150/80 mm(hg) (HIGH) O2 Sat - 99 % Pain - 0 Physical Examination: Constitutional - He looks good generally, Eyes - Sclerae nonicteric. Conjunctivae clear, ENMT - No lesions noted in the oral cavity, Hematologic/Lymphatic - No cervical, clavicular, or axillary adenopathy, Respiratory - Lungs sound clear, Cardiovascular - Heart rhythm is regular. There is no murmur, gallop, or rub noted, Abdomen - Soft. Liver and spleen are not enlarged. There is no abdominal mass or ascites noted and there is no inguinal adenopathy, Extremities - No edema, Integumentary - He has extensive actinic lesions, including the facial area and both arms, Neurologic - No focal neurologic deficits noted. Problem List: 1. Recurrent thromboembolism. 2. Hypertension. 3. Allergic rhinitis. 4. Benign prostatic hypertrophy. 5. He has extensive actinic keratoses. Problems Addressed with this Encounter and Plan: 1. Patient with recurrent thromboembolism. He was diagnosed with left lower extremity deep vein thrombosis and significant bilateral pulmonary emboli in December 2019. He had previously been treated for bilateral pulmonary emboli in April 2015. Both episodes were unprovoked and occurred while off anticoagulation. He has remained on anticoagulation with apixaban 5 mg twice daily following the hospitalization in December 2019. He has tolerated it well, thus far with no bleeding complications and with no evidence for further thromboembolism. As such, I will have him continue the apixaban 5 mg twice daily, but he is advised now to stop the aspirin prophylaxis. I will see him again in 6 months. 2. He has extensive actinic keratoses, and I will now arrange for referral to Dr. Rangel. Signed By: Dimitrios Stockton M.D. <<Signature on File>>
== END 2020-06-30 10:03 | disposition home or self-care (01) ==
LOC: ONCMED 10:03
PROVIDERS: PCP Registered Nurse; Visit Provider Internal Medicine Medical Oncology
DX: Z86.718 Personal history of other venous thrombosis and embolism (principal); Z86.711 Personal history of pulmonary embolism; L57.0 Actinic keratosis; Z79.01 Long term (current) use of anticoagulants
CPT/HCPCS: 99214

== ENCOUNTER → 2020-10-12 08:08 | Outpatient (BNVA) | payer MEDICARE, OTHER, SELFPAY | PROVIDERS: PCP Registered Nurse; Visit Provider Specialist | DX: G56.03 Carpal tunnel syndrome, bilateral upper limbs (principal); Z87.891 Personal history of nicotine dependence | CPT/HCPCS: 95910 ==

== ENCOUNTER → 2020-11-04 14:16 | Outpatient (BNVA) | payer MEDICARE, OTHER, SELFPAY | PROVIDERS: PCP Registered Nurse; Referring Provider Registered Nurse; Visit Provider Specialist | DX: G56.03 Carpal tunnel syndrome, bilateral upper limbs (principal) | CPT/HCPCS: 73110 ==

== ENCOUNTER → 2020-11-16 08:22 | Outpatient (BNVA) | payer MEDICARE, OTHER, SELFPAY | PROVIDERS: PCP Registered Nurse; Visit Provider Specialist | DX: Z01.812 Encounter for preprocedural laboratory examination (principal); Z20.822 Contact with and (suspected) exposure to COVID-19 | CPT/HCPCS: 87635 ==

== ENCOUNTER 2020-11-20 07:49 | Day surgery (SDC) | payer MEDICARE, OTHER, SELFPAY ==
[2020-11-19 09:53] VITALS: BMI 27.8
--- NOTE | 2020-11-20 08:08 | W.PM.OPSUD ---
Surgery/Procedure H&P Update DATE OF PROCEDURE: November 20, 2020 DATE H&P PERFORMED: 11/04/20 H&P UPDATE INFORMATION: I have reviewed H&P completed within last 30 days, I have examined patient prior to procedure, No changes to prior documentation and H&P is in [facility] EMR on date indicated PREOP DIAGNOSIS: Left carpal tunnel syndrome PLANNED PROCEDURE: Operation Date: 11/20/20 09:30 Proposed Procedures p Carpal Tunnel Release 46941 G56.00(Left) - Darby Rowell MD Related Problem List Diagnoses (1) Carpal tunnel syndrome, left:
[2020-11-20 08:28] VITALS: BP 154/99; PULSE 60; RESP 18; TEMP 36.6; O2SAT 99
[2020-11-20] MEDS: CELEcoxib 200 mg Capsule 400 MG PO (08:35)
[2020-11-20] MEDS: acetaminophen 1,000 MG/100 ML PIGGYBACK 400 MG IV (08:35)
[2020-11-20] MEDS: sodium chloride 0.9% 1,000 ML 30 ML IV (08:40)
--- NOTE | 2020-11-20 08:51 | ANES.PREANE2 ---
Pre-Anesthetic Assessment Pre-Anesthetic Assessment: Height/Weight: Height 1.83 m Weight 92.986 kg Temp Pulse Resp BP Pulse Ox 97.8 F 60 18 154/99 99 11/20/20 08:28 11/20/20 08:28 11/20/20 08:28 11/20/20 08:28 11/20/20 08:28 Preop Diagnosis: Left carpal tunnel syndrome Proposed Procedure: Operation Date: 11/20/20 09:30 Proposed Procedures p Carpal Tunnel Release 33721 G56.00(Left) - Darby Rowell MD Familial anesthetic complications: None Was Beta Josy taken within 24 hours: Yes Was Clonidine taken within 24 hours: N/A Last intake: Intake Last Liquid Date 11/19/20 Last Liquid Time 18:00 Last Solid Date 11/19/20 Last Solid Time 18:00 Social: Social History: No alcohol and No tobacco Exam: Pre-Anes Outpt Exam: alert, oriented x 3, clear to auscultation bilaterally and regular rate & rhythm Airway: Cervical ROM: WNL MP: 2 Dentition: Full Pulmonary: Comments: hx DVT/PE X 2 - on eliquis (holding for procedure, Dr. blood ok'd) CV/HEM: CV/HEM: HTN Anesthetic Plan: ASA status: 2 Anesthesia: MAC and Regional (specify below) (romy block) Risk of > 500 ml blood loss (7ml/kg in children): No Meds/Allergies Current Medications: Current Medications Generic Name Dose Route Start Last Admin Trade Name Freq PRN Reason Stop Dose Admin Sodium Chloride 1,000 mls @ 30 ml s/hr 11/20/20 08:00 11/20/20 08:40 Sodium Chloride 0.9% IV 11/21/20 07:59 30 mls/hr .Q24H RUBEN Administration PFSH Anesthesia PFSH: Medical History Essential hypertension Surgical History Hx of bilateral inguinal hernia repair Hx of cholecystectomy Hx of transurethral resection of prostate Family History Other Cancer Data Anesthesia CBC & Chem 7: 11/20/20 08:27 Cardiac Studies: No Data to Display
[2020-11-20 09:05] LABS: Blood Urea Nitrogen 16 mg/dL (8-23); Carbon Dioxide 22 mmol/L (22-29); Chloride 110 mmol/L (98-107); Glucose 97 mg/dL (65-115); Osmolality Calculated 291 mOsm/kg (285-295); Sodium 140 mmol/L (136-145)
[2020-11-20 09:59] VITALS: BP 104/73; PULSE 55; RESP 14; TEMP 36.3; O2SAT 96
[2020-11-20 10:05] VITALS: BP 102/66; PULSE 64; RESP 17; TEMP 36.4; O2SAT 97
[2020-11-20 10:09] VITALS: BP 119/64; PULSE 54; RESP 16; TEMP 36.6; O2SAT 97
[2020-11-20 10:21] VITALS: BP 123/66; PULSE 60; RESP 15; TEMP 36.6; O2SAT 98
--- NOTE | 2020-11-20 10:21 | PM.OP ---
Operative Report Date of procedure: November 20, 2020 Pre-op Diagnosis: Left carpal tunnel syndrome Post-op diagnosis: same Post-op Findings: Severe carpal tunnel compression across the median nerve with hourglass configuration and purplish discoloration. Procedure Done: Left carpal tunnel release Implants: None Specimens removed/disposition: None Pathology: none sent Surgeon: Darby Rowell Anesthesia: MAC (With Raheem block) Estimated blood loss (mL): 1 Tourniquet time (min): 37 Tourniquet time: At 250 mmHg IV fluids (mL): 600 Urine output (mL): 0 Urine output: No Paz Complications: None Findings: Severe compression and carpal tunnel findings as listed in postoperative findings above Condition: stable Disposition: PACU (Then to same-day surgery for discharge to home) Brief History: This 85-year-old man presented with complaints consistent with carpal tunnel syndrome. The patient was unresponsive to conservative measures. After discussion, the patient wished to proceed with carpal tunnel release. Risks and complications were discussed with him. Consents were signed preoperatively. Questions were answered. Procedure: The patient was brought to the operating theater. The patient had a Raheem block with MAC. The tourniquet was elevated to 250 mmHg for a total tourniquet time of 37 minutes. The patient was also given Ancef 2 g preoperatively. The arm was then prepped and draped with DuraPrep in usual fashion with the arm draped free. A surgical pause was performed. At the time, the surgical pause, we confirmed the site and side of surgery. We also confirmed the patient's identity, appropriate and timely administration of preoperative antibiotics and preoperative surgical markings. An incision was then made along the thenar crease. The incision crossed the wrist joint in a curvilinear fashion. Dissection continued through skin and soft tissues using a scalpel. The palmaris longus was identified along with the transverse carpal ligament. Each of these was released carefully to avoid injury to the median nerve. We were able to dissect gently into the carpal canal which was noted to be quite tight with significant compression across the median nerve. The nerve was visualized and was an hourglass shape with purplish discoloration. The canal was subsequently palpated to assure there was no bony encroachment upon the canal. There was a quite thickened fibrous tissue within the canal, and this was opened longitudinally as well. The canal was then palpated distally and proximally to assure that my small finger was passed easily without impingement. Finding this to be so, attention was directed to closure. The wound was irrigated with ropivacaine plain. It was then closed with 3-0 nylon in an interrupted mattress fashion. Sterile dressing was then placed consisting of Dermabond, OpSite, fluffed fluffs, sterile soft roll, a volar splint, and an Jin wrap. The tourniquet was released after 37 minutes. There were no complications. There were no specimens. The procedure was well tolerated. Plan is the patient will be discharged home. Associated Problem List Diagnoses (1) Carpal tunnel syndrome, left:
--- NOTE | 2020-11-20 14:51 | ANE.PACU2 ---
Inpatient post-anesthesia follow up: Airway intact: Yes Vital signs: Temperature 98 F Pulse Rate 60 Respiratory Rate 15 Blood Pressure 123/66 Pulse Oximetry 98 Oxygen Delivery Me thod Room Air Oxygen Flow Rate Fraction of Inspir ed Oxygen Hydration adequate: Yes Nausea and vomiting: No Pain level: 1 Mental status: Baseline
== END 2020-11-20 11:00 | disposition home or self-care (01) ==
PROVIDERS: PCP Registered Nurse; Visit Provider Specialist
PROC: (CPT 64721; principal; 2020-11-20 09:20)
DX: G56.02 Carpal tunnel syndrome, left upper limb (principal); Z86.718 Personal history of other venous thrombosis and embolism; Z86.711 Personal history of pulmonary embolism; I10 Essential (primary) hypertension
CPT/HCPCS: 64721; 36415; 80048; 96365; J0690; J2704; J3010; J3490; J7030

== ENCOUNTER → 2020-12-23 15:19 | Outpatient (BNVA) | payer MEDICARE, OTHER, SELFPAY | PROVIDERS: PCP Registered Nurse; Visit Provider Specialist | DX: M25.552 Pain in left hip (principal) | CPT/HCPCS: 73502 ==

== ENCOUNTER 2021-01-05 09:24 | Outpatient (CLI) | payer MEDICARE, OTHER, SELFPAY ==
--- NOTE | 2021-01-05 09:44 | ONC FU_ITS ---
Dr. Stockton Patient Follow-Up Note Patient: Olivier Townsend Unit #: [id number]: 1935 Dicatated By: Dimitrios Stockton M.D.Date of Visit:Jan 05, 2021 Onc Med Follow-up/Prog Note Chief Complaint: Pulmonary embolism. History of Present Illness: This is an 85 year-old man with recurrent thromboembolism, including recent left lower extremity deep vein thrombosis and bilateral pulmonary emboli. He has a history of having been treated for a significant episode of pulmonary embolism back in April 2015. His CT pulmonary angiogram at that time showed severe pulmonary embolic burden involving all lobes with a small saddle embolism. There was no right heart strain on echocardiogram. It apparently was unprovoked, and there was no associated deep vein thrombosis by venous Doppler. He was treated initially with Lovenox and then transitioned to warfarin. Sometime around 2017 he was taken off warfarin. By his recollection he was not having any particular problems at the time. On 01/14/2020 he had presented to the emergency room with acute onset of shortness of breath and heart racing. His CT pulmonary angiogram again showed a significant bilateral pulmonary embolic burden. On this occasion his lower extremity venous Doppler showed features of deep vein thrombosis causing near total occlusion of the left common femoral vein and partial occlusion of the femoral vein. Thrombus also was noted in the greater saphenous vein at the proximal segment. He was not overtly symptomatic with the DVT. Echocardiogram showed normal LV systolic function with ejection fraction 59%. Also noted was normal right ventricular size and systolic function. There is mild to moderate tricuspid valve regurgitation. The estimated pulmonary artery peak systolic pressure was 40 mmHg. Following admission to the hospital he was treated initially on a heparin drip, but at discharge his anticoagulation was transitioned to apixaban 10 mg twice daily for 7 days, then continued at 5 mg twice daily. His subsequent clinical course was complicated by development of COVID-19 virus infection, but he had an uneventful recovery. I had seen him initially on 02/13/2020. By clinical assessment, he appeared to be at low risk for hereditary thrombophilia or for underlying malignancy, and I did not feel that any further evaluation was indicated, but I did recommend that he continue with long-term anticoagulation. His other medical illnesses include hypertension, allergic rhinitis, and benign prostatic hypertrophy. He has a history of smoking 1 pack of cigarettes daily for 16 years, but he quit smoking at age 32. He is seen for a follow-up visit. He has been feeling good generally. Since his last visit he has had a carpal tunnel release on the left and he has had skin cancers removed from his right forearm and from the area behind his right ear. The latter lesion apparently requires some additional excision, and he also will be needing to have carpal tunnel surgery on the right. He had no bleeding complications with any of the procedures. He has good energy and activity tolerance. ECOG score is 0. Appetite also has been good. He has no fever or night sweats. He sometimes has shortness of breath, but his breathing is good most of the time. He does not complain of cough and he has not been having chest pain. He has no GI/ complaints other than his stools are sometimes hard. He has had pain in the left hip area, but it is getting better with physical therapy. He has no other joint or bone pain. He does not complain of headache or dizziness, and he has no focal neurologic symptoms. He has not been bruising as much since he stopped aspirin. Medications: Carvedilol 1 Tablet (of 3.125 mg) Oral daily, Cetirizine HCl 1 Tablet (of 10 mg) Oral daily, Eliquis 1 Tablet (of 5 mg) Oral b.i.d., Vitamin D 1 Tablet Oral daily Allergies: No Known Allergies. Vital Signs: Performed on Jan 05, 2021 09:20 Height - 72.00 in Weight - 212 lbs (HIGH) BSA - 2.18 sq.m BMI - 28.75 Temperature - 98.0 F (LOW) Pulse - 58 /min (LOW) Respiration - 17 /min BP - 170/84 mm(hg) (HIGH) O2 Sat - 97 % Pain - 0 Physical Examination: Constitutional - He looks good generally, Eyes - Sclerae nonicteric. Conjunctivae clear, ENMT - No lesions noted in the oral cavity, Hematologic/Lymphatic - No cervical, clavicular, or axillary adenopathy, Respiratory - Lungs sound clear with some decrease in air movement bilaterally, Cardiovascular - Heart rhythm is regular. There is no murmur, gallop, or rub noted, Abdomen - Soft. Liver and spleen are not enlarged. There is no abdominal mass or ascites noted and there is no inguinal adenopathy, Extremities - No edema, Neurologic - No focal neurologic deficits noted. Lab/Imaging: Test performed on Jan 01, 2021 08:06 Glucose 105 mg/dL BUN 17 mg/dL Creatinine 1.04 mg/dL Cr Clearance (Est) 72.17 mL/min Sodium 136 mmol/L Potassium 4.2 mmol/L Chloride 103 mmol/L CO2 24 mmol/L Calcium 9.3 mg/dL Protein, Total 6.9 g/dL Albumin 4.1 g/dL Bilirubin, Total 0.8 mg/dL Alkaline Phosphatase 49 International Units/L AST (SGOT) 20 International Units/L ALT (SGPT) 13 International Units/L WBC 6.0 10^9/L RBC 5.31 10^12/L HGB 15.9 g/dL HCT 47.7 % MCV 89.8 fl MCH 29.9 pg MCHC 33.3 g/dL RDW 13.8 % Platelet Count 216 10^9/L MPV 9.3 fL Neutrophils (Gran) 3.01 10^9/L Lymphocytes 2.22 10^9/L Monocytes 0.54 10^9/L Eosinophils 0.18 10^9/L Basophils 0.06 10^9/L Problem List: 1. Recurrent thromboembolism. 2. Hypertension. 3. Allergic rhinitis. 4. Benign prostatic hypertrophy. 5. He has extensive actinic keratoses. Problems Addressed with this Encounter and Plan: Patient with recurrent thromboembolism. He was diagnosed with left lower extremity deep vein thrombosis and significant bilateral pulmonary emboli in December 2019. He had previously been treated for bilateral pulmonary emboli in April 2015. Both episodes were unprovoked and occurred while off anticoagulation. He remained on anticoagulation with apixaban 5 mg twice daily following the hospitalization in December 2019. During follow-up he has tolerated the apixaban with no adverse effects and thus far there has been no evidence of any further thromboembolism. Given his history, I have recommended that he continue long-term anticoagulation with apixaban at the full dosage of 5 mg to twice daily. He has had less bruising since he stopped aspirin prophylaxis. He will now continue his regular follow-up with Bhanu Prado. I will plan to see him again only as needed. Signed By: Dimitrios Stockton M.D. <<Signature on File>>
== END 2021-01-05 09:25 | disposition home or self-care (01) ==
LOC: ONCMED 09:24
PROVIDERS: PCP Registered Nurse; Visit Provider Internal Medicine Medical Oncology
DX: I27.82 Chronic pulmonary embolism (principal); I10 Essential (primary) hypertension; J30.9 Allergic rhinitis, unspecified; N40.0 Benign prostatic hyperplasia without lower urinary tract symptoms; L57.0 Actinic keratosis; Z79.899 Other long term (current) drug therapy
CPT/HCPCS: 99214

== ENCOUNTER → 2021-09-08 08:00 | Outpatient (BNVA) | payer MEDICARE, OTHER, SELFPAY | PROVIDERS: PCP Registered Nurse; Visit Provider Specialist | DX: G56.01 Carpal tunnel syndrome, right upper limb (principal) | CPT/HCPCS: 99214 ==

== ENCOUNTER 2021-09-08 11:26 | Outpatient (CLI) | payer MEDICARE, OTHER, SELFPAY | END 2021-09-08 11:27 | disposition home or self-care (01) | LOC: SPT 11:27 | PROVIDERS: PCP Registered Nurse; Visit Provider Specialist | DX: Z46.89 Encounter for fitting and adjustment of other specified devices (principal); G56.01 Carpal tunnel syndrome, right upper limb | CPT/HCPCS: 97760; L3908 ==

== ENCOUNTER 2021-09-17 08:39 | Day surgery (SDC) | payer MEDICARE, OTHER, SELFPAY ==
[2021-09-16 09:18] VITALS: BMI 29.1
--- NOTE | 2021-09-17 08:45 | P.HPUD_ITS ---
Surgery/Procedure H&P Update DATE OF PROCEDURE: September 17, 2021 DATE H&P PERFORMED: 09/08/21 H&P UPDATE INFORMATION: I have reviewed H&P completed within last 30 days, I have examined patient prior to procedure, No changes to prior documentation and H&P is in [facility] [place] on date indicated PREOP DIAGNOSIS: Right carpal tunnel syndrome PLANNED PROCEDURE: Operation Date: 09/17/21 10:10 Proposed Procedures p Right Carpal Tunnel Release [id number]/G56.00(Right) - Darby Rowell MD Related Problem List Diagnoses (1) Carpal tunnel syndrome on right:
[2021-09-17 08:51] VITALS: BP 155/90; PULSE 51; RESP 18; TEMP 36.4; O2SAT 98
[2021-09-17] MEDS: acetaminophen 1,000 MG/100 ML PIGGYBACK 400 MG IV (09:09)
[2021-09-17] MEDS: sodium chloride 0.9% 1,000 ML 30 ML IV (09:09)
[2021-09-17] MEDS: CELEcoxib 200 mg Capsule 400 MG PO (09:10)
--- NOTE | 2021-09-17 09:40 | P.ANESASSM_ITS ---
Pre-Anesthetic Assessment Height/Weight: Height 1.83 m Weight 97.522 kg Temp Pulse Resp BP Pulse Ox 97.5 F L 51 L 18 155/90 98 09/17/21 08:51 09/17/21 08:51 09/17/21 08:51 09/17/21 08:51 09/17/21 08:51 Preop Diagnosis: Right carpal tunnel syndrome Operation Date: 09/17/21 10:10 Proposed Procedures p Right Carpal Tunnel Release [id number]/G56.00(Right) - Darby Rowell MD Familial anesthetic complications: none Was Beta Josy taken within 24 hours: Yes Was Clonidine taken within 24 hours: N/A Last intake: Intake Last Liquid Date 09/16/21 Last Liquid Time 18:00 Last Solid Date 09/16/21 Last Solid Time 18:00 Social No alcohol and No tobacco Exam alert, oriented x 3, clear to auscultation bilaterally and regular rate & rhythm Airway Submandibular: within normal limits Cervical ROM: Other (Limited flexion) Mallampati: Class I Comments: Comments: Missing teeth Pulmonary Hx of PE CV/HEM Hypertension METS > 4 None reported Hepatic None reported GI None reported Metabolic None reported Musc/skel Osteoarthritis/DJD Neuropsych Neuropathy (Carpal tunnel) Anesthetic Plan ASA status: 2 Anesthesia: Anesthesia Evaluation, General, MAC and Regional (specify below) (Raheem block) Other: We discussed risk and benefits of general, MAC, and regional ([place] block) anesthesia including PONV, sore throat (sometimes severe), corneal abrasion, positioning and peripheral nerve injuries, life threatening allergic reaction, LAST, post operative ICU admission requiring prolonged intubation, stroke, heart attack, , failed block, tourniquet pain/discomfort, possibility of recall of intraoperative stimuli including discomfort/pain/pressure. Patient consents to proceed with MAC and Raheem block anesthesia with conversion to general if needed. Risk of > 500 ml blood loss (7ml/kg in children): No Medications/Allergies Home Medications Medication Instructions Recorded Confirmed Last Taken Type Vitamin D3 1 tab PO DAILY 01/14/20 09/17/21 09/16/21 08:00 History azelastine 137 mcg (0.1 %) nasal 1 spray INTRANASAL BID 06/16/21 09/17/21 09/17/21 08:00 History spray aerosol levocetirizine 5 mg tablet 5 mg PO DAILY 06/16/21 09/17/21 09/16/21 08:00 History apixaban 5 mg tablet (Eliquis) 5 mg PO DAILY 90 Days #180 tab 08/09/21 09/16/21 09/14/21 Rx carvedilol 3.125 mg tablet See Rx Instructions .ROUTE 08/16/21 09/17/21 09/17/21 08:00 Rx .COMPLEX #180 tab lisinopril 10 mg tablet 10 mg PO DAILY #90 tab 08/23/21 09/17/21 09/16/21 21:00 Rx COCK UP SPLINT #1 ea NS 09/08/21 09/08/21 Unknown Rx Allergies Allergy/AdvReac Type Severity Reaction Status Date / Time No Known Allergies Allergy Verified 09/16/21 09:16 Current Medications Generic Name Dose Route Start Last Admin Trade Name Freq PRN Reason Stop Dose Admin Sodium Chloride 1,000 mls @ 30 mls/hr 09/17/21 08:45 09/17/21 09:09 Sodium Chloride 0.9% IV 09/18/21 08:44 30 mls/hr .Q24H RUBEN Administration PFSH Anesthesia Medical History Essential hypertension Surgical History Hx of bilateral inguinal hernia repair Hx of cholecystectomy Hx of transurethral resection of prostate Family History Other Cancer Social History Smoking and tobacco status: never smoked Alcohol intake: never Adopted: No Caregiver/support person: No Lives independently: No Household members: children Sexually active: No Current gender identity: Male Data Anesthesia Cardiac Studies: Echocardiogram Ultrasound 01/15/20
[2021-09-17 10:25] VITALS: BP 153/51; PULSE 56; RESP 16; TEMP 36.1; O2SAT 96
[2021-09-17 10:31] VITALS: BP 113/84; PULSE 51; RESP 16; TEMP 36.1; O2SAT 96
--- NOTE | 2021-09-17 10:36 | PM.OP ---
Operative Report Date of procedure: September 17, 2021 Pre-op diagnosis: Right carpal tunnel syndrome Post-op diagnosis: Right carpal tunnel syndrome Post-op findings: Significant compression with hourglass deformity to the median nerve Procedure done: Right carpal tunnel release Specimens removed/disposition: None Pathology: none sent Surgeon: Darby Rowell Assembly Line Robot Operator: None Anesthesia: MAC (With Marvin block, ASA 2) Estimated blood loss (mL): 2 Tourniquet time (min): 31 (At 250 mmHg) IV fluids (mL): 300 Urine output (mL): 0 (No Paz) Complications: None Condition: stable Disposition: PACU (Then to same-day surgery for discharge home with family) Brief History: This is an established 86 year old male patient who presented to the office for evaluation of his wrist pain and to discuss surgical intervention. He has previously undergone left carpal tunnel release, and is having similar symptoms in his right hand. Patient states that the right wrist has been increasingly painful. Patient states the pain is affecting his daily activities. Patient states that the pain is worse in the evening. He would like to proceed with right carpal tunnel release. Procedure: The patient was brought to the operating theater. The patient had a Marvin block with MAC. The tourniquet was elevated to 250 mmHg for a total tourniquet time of 31 minutes. The patient was also given Ancef 2 g preoperatively. The arm was then prepped and draped with DuraPrep in usual fashion with the arm draped free. A surgical pause was performed. At the time, the surgical pause, we confirmed the site and side of surgery. We also confirmed the patient's identity, appropriate and timely administration of preoperative antibiotics and preoperative surgical markings. An incision was then made along the thenar crease. The incision crossed the wrist joint in a curvilinear fashion. Dissection continued through skin and soft tissues using a scalpel. The palmaris longus was identified along with the transverse carpal ligament. Each of these was released carefully to avoid injury to the median nerve. We were able to dissect gently into the carpal canal which was noted to be quite tight with significant compression across the median nerve. The nerve was visualized and was an hourglass shape. The canal was subsequently palpated to assure there was no bony encroachment upon the canal. There was a quite thickened fibrous tissue within the canal, and this was opened longitudinally as well. The canal was then palpated distally and proximally to assure that my small finger was passed easily without impingement. Finding this to be so, attention was directed to closure. The wound was irrigated with bupivacaine plain. It was then closed with 3-0 nylon in an interrupted mattress fashion. Sterile dressing was then placed consisting of Dermabond, OpSite, fluffed fluffs, sterile soft roll, and an Jin wrap. The tourniquet was released after 31 minutes. There were no complications. There were no specimens. The procedure was well tolerated. Plan is the patient will be discharged home. Related Problem List Diagnoses (1) Carpal tunnel syndrome on right:
[2021-09-17 10:39] VITALS: BP 158/83; PULSE 57; RESP 17; TEMP 36.2; O2SAT 95
[2021-09-17 11:07] VITALS: BP 149/92; PULSE 51; RESP 17; TEMP 36.2; O2SAT 95
--- NOTE | 2021-09-17 11:50 | ANE.PACU2 ---
Inpatient post-anesthesia follow up: Airway intact: Yes Vital signs: Temperature 97.1 F Pulse Rate 51 Respiratory Rate 17 Blood Pressure 149/92 Pulse Oximetry 95 Oxygen Delivery Me thod Room Air Oxygen Flow Rate Fraction of Inspir ed Oxygen Hydration adequate: Yes Nausea and vomiting: No Pain level: 1 Mental status: Baseline
== END 2021-09-17 11:14 | disposition home or self-care (01) ==
PROVIDERS: PCP Registered Nurse; Visit Provider Specialist
PROC: (CPT 64721; principal; 2021-09-17 10:00)
DX: G56.01 Carpal tunnel syndrome, right upper limb (principal); Z86.711 Personal history of pulmonary embolism
CPT/HCPCS: 64721; J2704; J3490; J7030

== ENCOUNTER → 2021-09-21 09:02 | Outpatient (BNVA) | payer MEDICARE, OTHER, SELFPAY | PROVIDERS: PCP Registered Nurse; Visit Provider Registered Nurse | DX: I26.99 Other pulmonary embolism without acute cor pulmonale (principal); I10 Essential (primary) hypertension | CPT/HCPCS: 80053; 80061; 85025 ==

== ENCOUNTER 2022-05-19 05:47 | Emergency (ER) | payer MEDICARE, OTHER, SELFPAY ==
[2022-05-19 05:57] VITALS: BP 180/99; PULSE 51; RESP 18; TEMP 36.4; O2SAT 96; BMI 28.5
--- NOTE | 2022-05-19 06:02 | ECG_ITS ---
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 Measurements Intervals [place] Rate: 50 P: 46 VA: 237 QRS: -7 QRSD: 94 T: 25 QT: 435 QTc: 399 Interpretive Statements SINUS BRADYCARDIA WITH FIRST DEGREE AV BLOCK NONSPECIFIC T-WAVE ABNORMALITY Compared to ECG 01/18/2020 16:09:12 First degree AV block now present T-wave abnormality now present Sinus rhythm no longer present Electronically Signed On 05-19-2022 8:37:17 TRANSPORTATION MAINTENANCE SPECIALIST by Day Casey M.D. [email or web address]
--- NOTE | 2022-05-19 06:02 | XRR_ITS ---
PROCEDURE INFORMATION: Exam: XR Chest Exam date and time: 05/19/2022 6:16 AM Age: 86 years old Clinical indication: Pain; On breathing; Additional info: Dyspnea/cough TECHNIQUE: Imaging protocol: Radiologic exam of the chest. Views: 1 view. COMPARISON: CR XR chest 1V portable [id number] 01/18/2020 5:24 PM FINDINGS: Lungs: Unremarkable. No consolidation. Pleural spaces: Unremarkable. No pleural effusion. No pneumothorax. Heart/Mediastinum: Unremarkable. No cardiomegaly. Bones/joints: Unremarkable. XR/XR chest 1V portable [id number] IMPRESSION: No acute findings.
--- NOTE | 2022-05-19 06:10 | W.ED.GENADLT ---
HPI - General Adult General: Chief complaint: General Medical Stated complaint: Blood Pressure High\Numb in Neck Time Seen by Provider: 05/19/22 06:01 Source: patient Mode of arrival: ambulatory History of Present Illness: 86-year-old male presents emergency room with complaint of elevated blood pressure and chest discomfort. This he has had this for the last month or more. He previously was on amlodipine in addition to the lisinopril and carvedilol that he is on now. He is bradycardic on arrival here his initial blood pressure was 180s but the first repeat of his blood pressure was improved at 166/92. He was on a third blood pressure medication in the past believe it was amlodipine 2 and half milligrams but he stopped taking it because he said it did not help his blood pressure. He has previously had pulmonary emboli. He is on apixaban and carvedilol he thinks he may have A-fib in the past but is not entirely sure. He has no known coronary artery disease no previous angiograms or stress test in the last few years. He did have an echocardiogram at the time he was diagnosed with a pulmonary emboli 2 years ago that was unremarkable. He is not having any chest pain at this time he has had an intermittent twinges of chest pain that is lasted at most a few minutes he woke up with some chest discomfort morning radiating to the left neck that is already resolved. He has no focal neurologic deficits at this time. Onset (ago): month(s) Location: chest Radiation: other (Left shoulder) Severity: mild Pain Consistency: now resolved Relieving factors: none Exacerbating factors: none Associated symptoms: Reports chest pain; Deny confusion, cough, diaphoresis, dyspnea, fevers/chills, headache(s), malaise, nausea, rash, palpitations, seizures, short of breath, syncope, vomiting or weakness Treatments prior to arrival: none Review of Systems Const: Denies: fever(s), chills, fatigue, malaise or diaphoresis ENMT: Denies: throat pain, ear or mastoid pain, nasal discharge or nasal congestion Card: Reports: chest pain; Denies: palpitations, irregular heart rhythm, edema, swelling of feet/ankles or syncope Resp: Denies: dyspnea, productive cough, non-productive cough or wheezing GI: Denies: abdominal pain, nausea or vomiting : Denies: flank pain, dysuria, urinary frequency or urinary urgency Skin/Breast: Denies: rash Neuro: Denies: headache(s) or confusion PFSH ED PFSH: Medical History Essential hypertension History of nonmelanoma skin cancer Surgical History Hx of bilateral inguinal hernia repair Hx of cholecystectomy Hx of transurethral resection of prostate Family History Other Cancer Social History Smoking and tobacco status: former smoker Alcohol intake: never Adopted: No Caregiver/support person: No Lives independently: No Household members: children Sexually active: No Current gender identity: Male Physical Exam Const: COMMON NORMALS: no acute distress GENERAL APPEARANCE: cooperative and comfortable ORIENTATION/CONSCIOUSNESS: Yes awake, Yes oriented to person, Yes oriented to place and Yes oriented to time HENMT: COMMON NORMALS: normocephalic, atraumatic and hearing grossly normal bilaterally HEAD & SCALP: normocephalic and atraumatic Resp: COMMON NORMALS: normal respiratory effort, No retractions, No use of accessory muscles and clear to auscultation bilaterally AUSCULTATION: clear to auscultation bilaterally Cardio: COMMON NORMALS: regular rate, regular rhythm and No murmurs present (Cardio) RATE: regular rate RHYTHM: regular rhythm GI: COMMON NORMALS: Soft to palpation and No hepatosplenomegaly present AUSCULTATION: Yes normoactive bowel sounds PALPATION: Yes Soft to palpation, No Tenderness to palpation present (GI), No Guarding due to palpation present (GI) and Yes No hepatosplenomegaly present Extremity: COMMON NORMALS: normal to inspection, capillary refill normal, no clubbing, cyanosis or edema, no calf tenderness and no pedal edema Neuro: SENSORIUM/ORIENTATION: Yes oriented to person, Yes oriented to place and Yes oriented to time Skin: COMMON NORMALS: no rashes or lesions noted GENERAL SKIN EXAM: no rashes or lesions noted Course Vital Signs: Vital signs: Vital Signs Temperature 97.5 F L 05/19/22 05:57 Pulse Rate 47 L 05/19/22 08:09 Respiratory Rate 16 05/19/22 08:09 Blood Pressure 164/91 05/19/22 08:09 Pulse Oximetry 97 05/19/22 08:09 Oxygen Delivery Me thod 05/19/22 08:09 [facility] - General Adult Medical Decision Making Patient seen for chest pain. He is bradycardic likely from his beta-jonathon his blood pressure is mildly elevated initially 180/99 when given medications that improved to 141/87. He did have some report of brief atypical like chest pain his cardiac enzymes and EKG did not show any acute changes. Do not believe he has a PE or pneumonia based on his exam and history as well as a chest x-ray. No evidence of acute coronary syndrome at this time. We will go ahead and discharge the patient home at isosorbide mononitrate 30 mg daily also add aspirin daily continue his other blood pressure medications and increase his lisinopril to 20 mg daily recheck his blood pressure his primary care doctor within a week. If he has any recurrent symptoms return Case management will make arrangements for an outpatient Lexiscan sestamibi stress test. Medical Records I reviewed the patient's medical records. Lab Data I reviewed the patient's lab results. 05/19/22 05:56 05/19/22 05:56 Radiology Impressions Chest X-Ray 05/19/22 06:02 IMPRESSION: No acute findings. Laboratory Results WBC 6.4 10^3/uL (4.0-10.0) 05/19/22 05:56 RBC 5.49 10^6/uL (4.1-5.3) H 05/19/22 05:56 Hgb 16.8 g/dL (11.7-16.6) H 05/19/22 05:56 Hct 50.1 % (42.0-52.0) 05/19/22 05:56 MCV 91.3 fl (80-94) 05/19/22 05:56 MCH 30.6 pg (28.0-34.0) 05/19/22 05:56 MCHC 33.5 g/dL (30.0-36.0) 05/19/22 05:56 RDW 13.0 % (12.1-15.1) 05/19/22 05:56 Plt Count 248 10^3/cmm (130-400) 05/19/22 05:56 MPV 9.4 fL (7.4-10.4) 05/19/22 05:56 Neut % (Auto) 52.1 % 05/19/22 05:56 Lymph % (Auto) 36.6 % 05/19/22 05:56 [place] % (Auto) 8.9 % 05/19/22 05:56 Eos % (Auto) 1.7 % 05/19/22 05:56 Baso % (Auto) 0.5 % 05/19/22 05:56 Neut # (Auto) 3.33 10^3/uL (1.8-7.7) 05/19/22 05:56 Lymph # (Auto) 2.3 10^3/uL (0.8-4.8) 05/19/22 05:56 [place] # (Auto) 0.6 10^3/uL (0.2-0.9) 05/19/22 05:56 Eos # (Auto) 0.1 10^3/uL (0.0-0.8) 05/19/22 05:56 Baso # (Auto) 0.0 10^3/uL (0.0-0.1) 05/19/22 05:56 Nucleated RBC % (auto) 0 % 05/19/22 05:56 Nucleated RBCs # 0.0 /100WBC 05/19/22 05:56 Sodium 138 mmol/L (136-145) 05/19/22 05:56 Potassium 4.4 mmol/L (3.5-5.1) 05/19/22 05:56 Chloride 102 mmol/L (98-107) 05/19/22 05:56 Carbon Dioxide 24 mmol/L (22-29) 05/19/22 05:56 Anion Gap 16.4 (5-19) 05/19/22 05:56 BUN 18 mg/dL (8-23) 05/19/22 05:56 Creatinine 1.0 mg/dL (0.7-1.2) 05/19/22 05:56 GFR Calculation Not Reportable 05/19/22 05:56 Glucose 102 mg/dL (65-115) 05/19/22 05:56 Calculated Osmolality 288 mOsm/kg (285-295) 05/19/22 05:56 Calcium 9.0 mg/dL (8.5-10.5) 05/19/22 05:56 Troponin T Baseline 11 ng/L (0-15) 05/19/22 05:56 Troponin T 120 Minute 9.63 ng/L (0-15) 05/19/22 07:52 Delta Troponin T -1.37 ABS# (0-10) L 05/19/22 07:52 Discharge Plan Discharge Patient Disposition: Home Clinical Impression: Essential hypertension, Chest pain, atypical Condition: Stable Prescriptions: New aspirin 81 mg tablet,delayed release (DR/EC) 81 mg PO DAILY Qty: 30 0RF isosorbide mononitrate 30 mg tablet extended release 24 hr 30 mg PO DAILY Qty: 30 0RF Changed lisinopril 10 mg tablet 20 mg PO BEDTIME Qty: 60 0RF No Action Eliquis 5 mg tablet 5 mg PO BID 90 Days Qty: 180 3RF Rx Instructions: 340B! levocetirizine 5 mg tablet 5 mg PO DAILY Vitamin D3 25 mcg (1,000 unit) Tablet 25 mcg PO DAILY carvedilol 3.125 mg tablet 3.125 mg PO BID Rx Instructions: MUST ADMINISTER WITH A MEAL/FOOD Rhinocort Allergy 32 mcg/actuation [place],Non-Aerosol 1 spray INTRANASAL DAILY Rx Instructions: administer into each nostril Discharge Orders: Discharge ED (Routine); Ordered 05/19/22 Ordered By: Shiva Jay Referrals: Dann Prado FNP [Primary Care Provider] - Discharge Diet: Usual diet Discharge Activity: Limit activity as instructed Patient Instructions: Opioid Safety, Pain Management Activity Restrictions/Additional Instructions: You were seen today for elevated blood pressure and chest pain. Cardiac enzymes and EKG did not show any acute changes. Her blood pressure did respond to your medications. Recommend that you take a baby aspirin daily and also add isosorbide mononitrate 30 mg once daily. leadership development manager will make arrangements for a follow-up appointment with for a Lexiscan sestamibi stress test to further evaluate your heart. Avoid exertional activities and follow-up with your primary care doctor if symptoms recur. Coding Level of Care Code ED Assistant Administrator for Ponce Fwd Exam Detailed
[2022-05-19 06:11] LABS: Basophils % 0.5 %; Eosinophils # 0.1 10^3/uL (0.0-0.8); Eosinophils % 1.7 %; Hematocrit 50.1 % (42.0-52.0); Hemoglobin 16.8 g/dL (11.7-16.6); Lymphocytes # 2.3 10^3/uL (0.8-4.8); Lymphocytes % 36.6 %; Mean Corpuscular HGB Conc 33.5 g/dL (30.0-36.0); Mean Corpuscular Hemoglobin 30.6 pg (28.0-34.0); Mean Corpuscular Volume 91.3 fl (80-94); Mean Platelet Volume 9.4 fL (7.4-10.4); Monocytes # 0.6 10^3/uL (0.2-0.9); Monocytes % 8.9 %; Neutrophils # 3.33 10^3/uL (1.8-7.7); Neutrophils % 52.1 %; Nucleated Red Blood Cells % 0 %; Platelet Count 248 10^3/cmm (130-400); Red Blood Count 5.49 10^6/uL (4.1-5.3); White Blood Count 6.4 10^3/uL (4.0-10.0)
[2022-05-19 06:17] VITALS: BP 148/80; BP 169/87; BP 181/90; PULSE 52; PULSE 54; PULSE 67
[2022-05-19] MEDS: aspirin 81 mg Chew Tablet 324 MG PO (06:22)
[2022-05-19 06:30] LABS: Anion Gap 16.4 (5-19); Blood Urea Nitrogen 18 mg/dL (8-23); Carbon Dioxide 24 mmol/L (22-29); Chloride 102 mmol/L (98-107); Glucose 102 mg/dL (65-115); Osmolality Calculated 288 mOsm/kg (285-295); Potassium 4.4 mmol/L (3.5-5.1); Sodium 138 mmol/L (136-145)
[2022-05-19 06:42] LABS: Troponin(5th) Baseline 11 ng/L (0-15)
[2022-05-19 08:09] VITALS: BP 164/91; PULSE 47; RESP 16; O2SAT 97
--- NOTE | 2022-05-19 08:13 | ECG_ITS ---
[facility] Test Date: 2022-05-19 Pat Name: Olivier Townsend Department: Room: Gender: Male Director Of Programming: : 1935 Requested By: Shiva Lyon Order Number: [id number] Bro MD: Day Casey M.D. Measurements Intervals [place] Rate: 46 P: 50 ME: 231 QRS: -8 QRSD: 101 T: 34 QT: 460 QTc: 403 Interpretive Statements SINUS BRADYCARDIA WITH FIRST DEGREE AV BLOCK NONSPECIFIC T-WAVE ABNORMALITY Compared to ECG 05/19/2022 05:55:38 No significant changes Electronically Signed On 05-19-2022 8:37:35 MED AIDE by Day Casey M.D. [id number]
[2022-05-19 08:14] LABS: Troponin 5 2HR 9.63 ng/L (0-15)
[2022-05-19 08:50] LABS: Troponin 5 2HR Delta -1.37 ABS# (0-10)
--- NOTE | 2022-05-19 11:23 | DCPLANNER ---
Addendum entered by Adrienne Thornton 06/29/22 15:41: Patient had a stress test scheduled - patient did attend appointment Original Note: rd project manager had message to schedule an outpatient stress test for patient. rd project manager faxed signed order to centralized scheduling, who will call patient with appointment information.
== END 2022-05-19 09:09 | disposition home or self-care (01) ==
PROVIDERS: Emergency Provider Family Medicine; PCP Registered Nurse
DX: I10 Essential (primary) hypertension (principal); R07.89 Other chest pain
CPT/HCPCS: 36415; 71045; 80048; 84484; 85025; 93005; 99285

== ENCOUNTER 2022-06-23 07:51 | Outpatient (CLI) | payer MEDICARE, OTHER, SELFPAY ==
[2022-06-23 08:09] VITALS: BMI 24.4
--- NOTE | 2022-06-23 09:59 | PC.NURSE ---
Bradycardia Pt resting HR is 45-50 SR. Medications reviewed, takes carvedilol 6.25mg BID. Dr. Aguayo notified and does not want to proceed with stress test today. Dr. Marin nurse called to make medication adjustments to carvedilol. Pt rescheduled to 06/28 at 1115.
== END 2022-06-23 07:52 | disposition home or self-care (01) ==
LOC: CDL 07:54
PROVIDERS: PCP Registered Nurse; Visit Provider Family Medicine
DX: R07.89 Other chest pain (principal)
CPT/HCPCS: 36415; 96374

== ENCOUNTER 2022-06-28 10:59 | Outpatient (CLI) | payer MEDICARE, OTHER, SELFPAY ==
--- NOTE | 2022-06-28 | ECG_ITS ---
[facility] Test Date: 2022-06-28 Pat Name: Olivier Townsend Department: Room: Gender: Male Entry Specialists: : 1935 Requested By: Shiva Lyon Order Number: [id number] Bro MD: Nahun Aguayo M.D. Interpretive Statements NAME OF STUDY: LEXISCAN SESTAMIBI STRESS TEST INDICATION: Chest Pain, PROCEDURE: At the baseline, the EKG revealed sinus rhythm with occasional premature atrial contractions. The baseline heart was 60 bpm with a blood pressue of 129/72 mm of Hg Lexiscan was infused over a period of 20 seconds. A total of 0.4 milligrams of Lexiscan was infused. The stress phase was continued for a total of 5 minutes. Heart rate at the end of the stress phase was 65 bpm with a blood pressure 93/62 mm of Hg. The EKG at the peak infusion revealed no significant changes. Sestamibi was injected 20 seconds after the Lexiscan infusion. Heart rate at the end of the recovery phase was 66 bpm with a blood pressure of 104/60 mm of Hg. CONCLUSION: 1. No significant EKG changes with the LexiScan infusion 2. No LexiScan induced chest pain or cardiac arrhythmia 3. Normal blood pressure and heart rate response 4. Sestamibi/sestamibi perfusion scan pending; see separate report. Electronically Signed On 06-28-2022 16:32:50 CDT by Nahun Aguayo M.D. [id number]
[2022-06-28 11:21] VITALS: BMI 28.5
--- NOTE | 2022-06-28 11:29 | NMCV_ITS ---
NM aleja perf SPECT r/s* [id number] Olivier Townsend Age: 87 Gender: M : 1935 Exam Date: 06/28/2022 11:49 Ordering Phys: Shiva Jay DO Technologist: ADALI Goss Exam Location: [facility] Indications: CHEST PAIN STRESS TEST Please [facility] for full findings IMAGE PROTOCOL Rest/Stress 1 Lexiscan Day Radiopharmaceutical Dose (mCi) Administration Site Administered by Rest: Tc-99m 11.0 IV ADALI [place] Sestamibi Stress:Tc-99m 30.1 IV ADALI [place] Sestamibi Rest: 23-Jun-2022 60 Discovery 630 Stress: 28-Jun-2022 30 Discovery 630 0.4mg Lexiscan. Images obtained in supine and prone position. SPECT RESULTS Technical Quality: Excellent Raw Data Analysis: Normal Image Corrections: No attenuation or motion correction applied Summed Stress Score: 0 Summed Rest Score: 4 Summed Difference Score: 0 PERFUSION FINDINGS Slightly decreased tracer uptake was noted in the mid inferolateral, mid inferior and inferoseptal regions. No significant reversibility was noted in these regions. FUNCTIONAL RESULTS (calculated via Gated SPECT) Stress Image LV EF (%): 74 Stress EDV (mL):70 TID: 0.72 Stress ESV (mL):18 FUNCTIONAL FINDINGS: Segmental wall motion analysis revealing no gross wall motion abnormalities IMPRESSIONS 1. Myocardial perfusion imaging revealing an area of slightly decreased persistent tracer uptake in the inferolateral, inferior and inferoseptal regions, suggesting myocardial scarring versus attenuation artifact. 2. Normal LV ejection fraction of 74%. 3. LV wall motion analysis revealing no gross wall motion abnormalities. 4. Normal LV volume Low probability for coronary ischemia, based on the above findings No similar previous studies are available for comparison Dr Nahun Aguayo MD [facility] (Electronically Signed) Final Date: 28 June 2022 16:48 S
[2022-06-28] MEDS: regadenoson 0.4 Mg/5 ml Syringe IVP (11:42)
[2022-06-28 11:54] VITALS: BP 104/60; PULSE 71
== END 2022-06-28 11:00 | disposition home or self-care (01) ==
LOC: CDL 11:01
PROVIDERS: PCP Registered Nurse; Visit Provider Family Medicine
DX: R07.9 Chest pain, unspecified (principal)
CPT/HCPCS: 78452; 93017; A9500; J2785

== ENCOUNTER 2023-01-06 06:25 | Outpatient (CLI) | payer MEDICARE, OTHER, SELFPAY ==
--- NOTE | 2023-01-06 06:45 | USCV_ITS ---
Kristian Olivier Age: 87 Gender: M : 1935 Exam Date: 01/06/2023 06:43 Ordering Phys: Dann PradoP Technologist: EN [place] [facility] [place]ZZ[place] Risk Factors: Previous Vascular Surgery: Right Brachial BP: / Left Brachial BP: / Right Left Velocity (cm/s) Spectral Plaque Velocity (cm/s) Spectral Plaque Syst/Diast Broadening Syst/Diast Broadening 103.50/22.70 Prox CCA 120.70/ 18.20 85.60/ 17.60 Mid CCA 101.70/ 20.50 87.20/ 19.70 Distal CCA 84.70 / 16.50 61.20/ 11.80 Prox ICA 62.10 / 13.20 64.10/ 19.70 Mid ICA 60.60 / 21.00 55.50/ 17.90 Distal ICA 59.20 / 17.20 97.40 ECA 72.20 0.62 ICA/CCA 0.51 Antegrade Vertebral Antegrade 41.20/ 8.30 cm/s 34.20/ 6.20 cm/s Tri Subclavian Tri 94.00 76.90 CONCLUSIONS Right ICA stenosis <50%. Moderate atheromatous plaque right carotid bulb/ICA. Left ICA stenosis <50%. Moderate atheromatous plaque left carotid bulb/ICA. Intimal thickening in the common carotid arteries and internal carotid arteries bilaterally. Normal antegrade Doppler flow noted in the right vertebral artery. Normal antegrade Doppler flow noted in the left vertebral artery. Aleksander Wiseman MD (Electronically Signed) Final Date: 06 January 2023 09:05 S
== END 2023-01-06 06:26 | disposition home or self-care (01) ==
PROVIDERS: PCP Registered Nurse; Visit Provider Registered Nurse
DX: R42 Dizziness and giddiness (principal); I65.23 Occlusion and stenosis of bilateral carotid arteries
CPT/HCPCS: 93880

== ENCOUNTER 2023-01-19 07:59 | Outpatient (RCR) | payer MEDICARE, OTHER, SELFPAY | END 2023-02-14 23:59 | disposition home or self-care (01) | LOC: SPT 07:59 | PROVIDERS: PCP Registered Nurse; Visit Provider Registered Nurse | DX: R42 Dizziness and giddiness (principal) | CPT/HCPCS: 97161 ==

== ENCOUNTER → 2023-02-24 09:38 | Outpatient (BNVA) | payer MEDICARE, OTHER, SELFPAY | PROVIDERS: PCP Registered Nurse; Visit Provider Nurse Practitioner Family | DX: Z85.828 Personal history of other malignant neoplasm of skin (principal); L57.0 Actinic keratosis; L81.4 Other melanin hyperpigmentation; L57.8 Other skin changes due to chronic exposure to nonionizing radiation; D22.39 Melanocytic nevi of other parts of face | CPT/HCPCS: 17004; 99213 ==

== ENCOUNTER → 2023-03-15 11:30 | Outpatient (BNVA) | payer MEDICARE, OTHER, SELFPAY | PROVIDERS: PCP Registered Nurse; Visit Provider Dermatology | DX: L57.0 Actinic keratosis (principal); Z08 Encounter for follow-up examination after completed treatment for malignant neoplasm; Z85.828 Personal history of other malignant neoplasm of skin; L57.8 Other skin changes due to chronic exposure to nonionizing radiation | CPT/HCPCS: 17000; 99213 ==

== ENCOUNTER → 2023-07-06 14:36 | Outpatient (BNVA) | payer MEDICARE, OTHER, SELFPAY | PROVIDERS: PCP Registered Nurse; Visit Provider Dermatology | DX: D48.5 Neoplasm of uncertain behavior of skin (principal); L57.0 Actinic keratosis; L30.0 Nummular dermatitis; L57.8 Other skin changes due to chronic exposure to nonionizing radiation; L82.1 Other seborrheic keratosis; Z85.828 Personal history of other malignant neoplasm of skin | CPT/HCPCS: 17004; 99214 ==

== ENCOUNTER → 2023-08-02 08:25 | Outpatient (BNVA) | payer MEDICARE, OTHER, SELFPAY | PROVIDERS: PCP Registered Nurse; Visit Provider Dermatology | DX: L57.0 Actinic keratosis (principal) | CPT/HCPCS: 96567 ==

== ENCOUNTER → 2023-10-03 15:27 | Outpatient (BNVA) | payer MEDICARE, OTHER, SELFPAY | PROVIDERS: PCP Registered Nurse; Visit Provider Dermatology | DX: L57.8 Other skin changes due to chronic exposure to nonionizing radiation (principal); L57.0 Actinic keratosis; D48.5 Neoplasm of uncertain behavior of skin; Z85.828 Personal history of other malignant neoplasm of skin | CPT/HCPCS: 11102; 17000; 99213 ==

== ENCOUNTER → 2023-10-25 07:49 | Outpatient (BNVA) | payer MEDICARE, OTHER, SELFPAY | PROVIDERS: PCP Registered Nurse; Visit Provider Dermatology | DX: L57.0 Actinic keratosis (principal) | CPT/HCPCS: 96573 ==

== ENCOUNTER → 2023-11-14 11:27 | Outpatient (BNVA) | payer MEDICARE, OTHER, SELFPAY | PROVIDERS: PCP Registered Nurse; Visit Provider Registered Nurse | DX: Z91.89 Other specified personal risk factors, not elsewhere classified (principal) | CPT/HCPCS: 85025; 86618; 86666; 86757 ==

== ENCOUNTER → 2024-02-02 08:11 | Outpatient (BNVA) | payer MEDICARE, OTHER, SELFPAY | PROVIDERS: PCP Registered Nurse; Visit Provider Nurse Practitioner Family | DX: L57.8 Other skin changes due to chronic exposure to nonionizing radiation (principal); Z85.828 Personal history of other malignant neoplasm of skin; D48.5 Neoplasm of uncertain behavior of skin; L57.0 Actinic keratosis | CPT/HCPCS: 11102; 17000; 99213 ==

== ENCOUNTER → 2024-02-29 08:09 | Outpatient (BNVA) | payer MEDICARE, OTHER, SELFPAY | PROVIDERS: PCP Registered Nurse; Visit Provider Dermatology | DX: C44.41 Basal cell carcinoma of skin of scalp and neck (principal); D48.5 Neoplasm of uncertain behavior of skin | CPT/HCPCS: 11624; 12044; 17311 ==

== ENCOUNTER → 2024-03-20 14:13 | Outpatient (BNVA) | payer MEDICARE, OTHER, SELFPAY | PROVIDERS: PCP Registered Nurse; Visit Provider Dermatology | DX: L57.0 Actinic keratosis (principal) | CPT/HCPCS: 96573 ==

== ENCOUNTER → 2024-05-06 14:16 | Outpatient (BNVA) | payer MEDICARE, OTHER, SELFPAY | PROVIDERS: PCP Registered Nurse; Visit Provider Dermatology | DX: L57.0 Actinic keratosis (principal) | CPT/HCPCS: 96573 ==

== ENCOUNTER → 2024-05-27 08:32 | Outpatient (BNVA) | payer MEDICARE, OTHER, SELFPAY | PROVIDERS: PCP Registered Nurse; Visit Provider Nurse Practitioner Family | DX: L81.4 Other melanin hyperpigmentation (principal); L82.1 Other seborrheic keratosis; Z08 Encounter for follow-up examination after completed treatment for malignant neoplasm; Z85.828 Personal history of other malignant neoplasm of skin; L57.0 Actinic keratosis | CPT/HCPCS: 17000; 99213 ==

== ENCOUNTER → 2024-06-10 10:18 | Outpatient (BNVA) | payer MEDICARE, OTHER, SELFPAY | PROVIDERS: PCP Registered Nurse; Visit Provider Dermatology | DX: L57.0 Actinic keratosis (principal) | CPT/HCPCS: 96573 ==

== ENCOUNTER → 2024-07-15 11:17 | Outpatient (BNVA) | payer MEDICARE, OTHER, SELFPAY | PROVIDERS: PCP Registered Nurse; Visit Provider Dermatology | DX: L57.0 Actinic keratosis (principal) | CPT/HCPCS: 96573; J7308 ==

== ENCOUNTER → 2024-09-24 09:03 | Outpatient (BNVA) | payer MEDICARE, OTHER, SELFPAY | PROVIDERS: PCP Registered Nurse; Visit Provider Nurse Practitioner Family | DX: L81.4 Other melanin hyperpigmentation (principal); L82.1 Other seborrheic keratosis; Z08 Encounter for follow-up examination after completed treatment for malignant neoplasm; Z85.828 Personal history of other malignant neoplasm of skin; D48.5 Neoplasm of uncertain behavior of skin; L57.0 Actinic keratosis | CPT/HCPCS: 11102; 17000; 99213 ==

== ENCOUNTER 2024-09-30 09:51 | Outpatient (CLI) | payer MEDICARE, OTHER, SELFPAY ==
--- NOTE | 2024-09-30 09:59 | XRR_ITS ---
PROCEDURE INFORMATION: Exam: XR Bilateral Hips Exam date and time: 09/30/2024 10:10 AM Age: 89 years old Clinical indication: Other: Arthritis; Additional info: M16.12 - unilateral primary osteoarthritis, left hip TECHNIQUE: Imaging protocol: Radiologic exam of the bilateral hips. Views: 2 views of hips with pelvis when performed. COMPARISON: CR XR hip LT 2-3V wo/w pel* [id number] 12/23/2020 3:26 PM FINDINGS: Bones/joints: Unremarkable. No acute fracture. Soft tissues: Otherwise, unremarkable soft tissues. Vasculature: Unchanged arterial calcification. XR/XR hip BI 3-4V wo/w pel [id number] IMPRESSION: No acute findings.
== END 2024-09-30 09:52 | disposition home or self-care (01) ==
PROVIDERS: PCP Registered Nurse; Visit Provider Registered Nurse
DX: M16.12 Unilateral primary osteoarthritis, left hip (principal); M16.11 Unilateral primary osteoarthritis, right hip
CPT/HCPCS: 73522

== ENCOUNTER → 2024-10-09 08:23 | Outpatient (BNVA) | payer MEDICARE, OTHER, SELFPAY | PROVIDERS: PCP Registered Nurse; Visit Provider Specialist | DX: M70.61 Trochanteric bursitis, right hip (principal); M70.62 Trochanteric bursitis, left hip | CPT/HCPCS: 73523; 99204 ==

== ENCOUNTER → 2024-12-12 10:22 | Outpatient (BNVA) | payer MEDICARE, OTHER, SELFPAY | PROVIDERS: PCP Registered Nurse; Visit Provider Emergency Medicine | DX: B34.9 Viral infection, unspecified (principal) | CPT/HCPCS: 87400; 87420; 87426 ==

== ENCOUNTER → 2025-01-28 09:24 | Outpatient (BNVA) | payer MEDICARE, OTHER, SELFPAY | PROVIDERS: PCP Registered Nurse; Visit Provider Nurse Practitioner Family | DX: L57.8 Other skin changes due to chronic exposure to nonionizing radiation (principal); L81.4 Other melanin hyperpigmentation; L82.1 Other seborrheic keratosis; Z08 Encounter for follow-up examination after completed treatment for malignant neoplasm; Z85.828 Personal history of other malignant neoplasm of skin; Z09 Encounter for follow-up examination after completed treatment for conditions other than malignant neoplasm; Z87.2 Personal history of diseases of the skin and subcutaneous tissue; D48.5 Neoplasm of uncertain behavior of skin; L57.0 Actinic keratosis | CPT/HCPCS: 11102; 17000; 69100; 99213 ==